=== PATIENT | male | born 1995 | race Caucasian/White ===

== ENCOUNTER 2019-04-13 09:01 | Emergency (ER) | payer OTHER, SELFPAY ==
[2019-04-13 09:07] VITALS: BP 112/65; PULSE 80; RESP 16; TEMP 37.1; O2SAT 100
--- NOTE | 2019-04-13 09:14 | ED.URI ---
HPI - URI/Sore Throat General Chief Complaint: Upper Respiratory Infection Stated Complaint: sore throat/sinus pressure/chest mata Time Seen by Provider: 04/13/19 09:20 Source: patient and RN notes reviewed History of Present Illness HPI Narrative: Patient is a 23-year-old male that presents the urgent care with complaints of sore throat, chest congestion, cough, sinus pressure. Patient states that started 2 days ago. Denies any known fever, nausea, vomiting. Has been using Zicam, nasal spray and Tylenol. No other acute complaints. No acute distress noted. Patient read the plan of care. Related Data Home Medications Medication Instructions Recorded Confirmed Zycam 04/13/19 acetaminophen [Tylenol] 325 mg PO ONCE PRN 04/13/19 04/13/19 Allergies Allergy/AdvReac Type Severity Reaction Status Date / Time No Known Allergies Allergy Verified 04/13/19 09:15 Review of Systems Review of Systems: Narrative: CONSTITUTIONAL: Denies fever, chills, or sweats. EYES: Denies visual changes, redness, or discharge. ENT: Reports of sinus congestion, sinus pressure, mild sore throat, postnasal drainage CARDIOVASCULAR: Denies chest pain, palpitations, or edema. RESPIRATORY: Reports of nonproductive cough without dyspnea GASTROINTESTINAL: Denies abdominal pain, nausea, vomiting, or diarrhea. GENITOURINARY: Denies dysuria or hematuria. SKIN: Denies rash or itching. MUSCULOSKELETAL: Denies back pain, joint pain, or myalgia. NEUROLOGIC: Denies headache, numbness, or weakness. All other systems reviewed are negative, except as documented in HPI. PMFSH Social History Social History Smoking status: Light tobacco smoker Alcohol intake: never Substance use type: marijuana Comments At the time of my signature, I reviewed and agree with the nursing past medical, surgical, social, and family history. There is no relevant family history pertinent to the patient complaint. Exam Narrative: Exam Narrative: GENERAL: This is a well-nourished, well-developed patient, in no apparent distress. HEAD: normocephalic, atraumatic. EYES: PERRL. Sclera clear/white. Vision is grossly intact. EARS: External ears normal, auditory canals clear and without drainage, TMs normal without perforation. Hearing grossly intact. NOSE: External nose normal with no obvious nasal discharge, nares without redness, clear rhinorrhea. THROAT: Mucous membranes moist, posterior pharynx clear. Mild postnasal drainage NECK: Neck supple, non-tender without lymphadenopathy CARDIOVASCULAR: Regular rate and rhythm without murmurs, gallops, or rubs. RESPIRATORY: Clear to auscultation. Breath sounds equal bilaterally. No wheezes, rales, or rhonchi. SKIN: warm, intact with no suspicious lesions or rash, good texture and turgor. NEURO: awake, alert, and oriented to person, place and time. There were no obvious focal neurologic abnormalities. EXTREMITIES: No clubbing, cyanosis, or edema. Course Vital Signs Vital signs: Vital Signs Temperature 98.7 F 04/13/19 09:07 Pulse Rate 80 04/13/19 09:07 Respiratory Rate 16 04/13/19 09:07 Blood Pressure 112/65 04/13/19 09:07 Pulse Oximetry 100 04/13/19 09:07 Temperature 98.7 F 04/13/19 09:07 Pulse Rate 80 04/13/19 09:07 Respiratory Rate 16 04/13/19 09:07 Blood Pressure 112/65 04/13/19 09:07 Pulse Oximetry 100 04/13/19 09:07 Reviewed MDM - URI/Sore Throat MDM Narrative Medical decision making narrative: Reviewed lab results with the patient. He is aware that flu swab was negative for influenza. Advised the patient to continue using [id number] medications as needed for symptoms. Continue to use Flonase, Claritin, Tylenol/ibuprofen. Increase fluids and rest. Use humidifier at night. Follow-up with PCP within 2 to 5 days or for worsening symptoms or failure to improve. Differential Diagnosis Differential diagnosis: Likely upper respiratory infection, otitis media, sinusitis, viral infection,
== END 2019-04-13 09:35 | disposition home or self-care (01) ==
PROVIDERS: Emergency Provider Nurse Practitioner Family
DX: J06.9 Acute upper respiratory infection, unspecified (principal); F17.200 Nicotine dependence, unspecified, uncomplicated
CPT/HCPCS: 87804; 99212; G0463

== ENCOUNTER 2020-04-20 15:12 | Emergency (ER) | payer SELFPAY ==
[2020-04-20 15:42] VITALS: BP 102/88; PULSE 95; RESP 18; TEMP 36.7; O2SAT 100
--- NOTE | 2020-04-20 15:47 | PC.NURSE ---
Pt hyperventilating in triage, crying and states Im freaking out, I freak out with needles, I have bad anxiety, dont do this right now. I feel like I am going to pass out. Pt uncooperative w/ lab draw at this time, requests to wait for room.
== END 2020-04-20 21:31 | disposition left against medical advice (07) ==
DX: Z53.21 Procedure and treatment not carried out due to patient leaving prior to being seen by health care provider (principal)
CPT/HCPCS: 99199

== ENCOUNTER 2020-04-20 19:44 | Emergency (ER) | payer OTHER, SELFPAY ==
--- NOTE | ~2020-04-20 | XR_ITS ---
EXAMINATION: XR chest 1V portable INDICATION: Shortness of breath and midsternal chest pain TECHNIQUE: Portable AP chest at 2255 hours COMPARISON: None available FINDINGS: The lungs are free of acute opacities. There is no pleural effusion or pneumothorax. The ca rdiomediastinal silhouette is normal. The visualized bones and soft tissues are unremarkable. IMPRESSION: 1. No acute cardiopulmonary abnormality. Reviewed, dictated and finalized at location A. S SYSTEMS ENGINEER
[2020-04-20 20:41] VITALS: BP 122/80; PULSE 84; RESP 22; TEMP 36.3; O2SAT 100
--- NOTE | 2020-04-20 20:44 | ECG_ITS ---
Measurements Intervals [place] Rate: 89 P: 67 MS: 127 QRS: 81 QRSD: 83 T: 61 QT: 358 QTc: 436 Interpretive Statements SINUS RHYTHM WITH SINUS ARRHYTHMIA NORMAL ECG Electronically Signed On 04-21-2020 7:13:21 AUTOMOBILE RACER by Marciano Villanueva D.O.
[2020-04-20 21:07] LABS: Basophils Percent Auto 0.3 % (0.2-1.2); Eosinophils Percent Auto 0.4 % (0-4.4); Hematocrit 41.4 % (42.0-52.0); Hemoglobin 14.7 g/dL (14.0-18.0); Immature Granulocyte Absolute 0.04 K/mm3 (0.00-0.031); Immature Granulocyte Percent A 0.4 % (0-0.5); Lymphocytes Absolute Auto 2.26 K/mm3 (0.9-3.2); Lymphocytes Percent Auto 22.2 % (18.3-44.2); Mean Corpuscular HGB Conc 35.5 g/dl (32-36); Mean Corpuscular Hemoglobin 29.3 pg (26-34); Mean Corpuscular Volume 82.5 fl (80-100); Monocytes Absolute Auto 0.6 K/mm3 (0.1-0.6); Monocytes Percent Auto 5.8 % (2.6-8.5); Neutrophils Absolute Auto 7.2 K/mm3 (1.3-6.7); Neutrophils Percent Auto 70.9 % (45.5-73.1); Platelet Count Result 229 k/mm3 (150-375); Red Blood Count 5.02 M/mm3 (4.6-6.20); Red Cell Distribution Width 12.4 % (11.5-14.5); White Blood Count 10.2 K/mm3 (4.5-10.0)
[2020-04-20 21:18] LABS: Anion Gap 10 mmol/L (8-16); Blood Urea Nitrogen 14 mg/dL (9-20); Calcium 10.1 mg/dL (8.4-10.2); Carbon Dioxide 23 mmol/L (22-30); Chloride 103 mmol/L (98-107); Estimated Glomerular Filt Rate > 60; Glucose 99 mg/dL (75-110); Potassium 3.6 mmol/L (3.4-5.0); Sodium 136 mmol/L (137-145)
[2020-04-20 22:17] VITALS: BP 133/88; PULSE 89; PULSE 98; RESP 12; O2SAT 100
--- NOTE | 2020-04-20 22:29 | ED.SOB ---
HPI - SOB/Dyspnea General Chief Complaint: Shortness of Breath/Dyspnea Stated Complaint: can't take a deep breath Time Seen by Provider: 04/20/20 22:16 Source: patient Mode of arrival: ambulatory Limitations: no limitations History of Present Illness HPI Narrative: Patient is a 24-year-old male complaining of shortness of breath that started earlier today. Patient states he has a history of anxiety. Patient denies any cough, congestion, chest pain, abdominal pain, nausea, vomiting, fever or chills. Related Data Home Medications Medication Instructions Recorded Confirmed Zycam 04/13/19 acetaminophen [Tylenol] 325 mg PO ONCE PRN 04/13/19 04/13/19 Allergies Allergy/AdvReac Type Severity Reaction Status Date / Time No Known Allergies Allergy Verified 04/13/19 09:15 Review of Systems Review of Systems: All systems reviewed & are unremarkable except as noted in HPI and below Constitutional: Constitutional: Denies body ache(s), Denies chills, Denies excessive sweating, Denies fatigue, Denies fever(s), Denies headache(s), Denies lethargy, Denies malaise, Denies weakness and Denies weight loss Eyes: Eyes: Denies blurry vision, Denies change in vision and Denies loss of vision ENT: Denies dizziness, Denies ear discharge, Denies headache(s), Denies lip swelling, Denies epistaxis, Denies nasal congestion, Denies neck pain, Denies throat swelling and Denies tongue swelling Cardiovascular: Cardiovascular: Denies chest pain, Denies chest pain at rest, Denies chest pain with activity, Denies diaphoresis, Denies rapid heart rate, Denies edema, Denies irregular heart rhythm, Denies lightheadedness, Denies palpitations, Denies dyspnea and Denies dyspnea on exertion Respiratory: Respiratory: Denies chest congestion, Denies cough and Denies hemoptysis Gastrointestinal: Gastrointestinal: Denies abdominal pain, Denies melena, Denies hematochezia, Denies diarrhea, Denies nausea, Denies vomiting and Denies hematemesis Musculoskeletal: Musculoskeletal: Denies abnormal gait, Denies deformity, Denies joint swelling, Denies limited range of motion, Denies neck pain and Denies numbness Neurologic: Denies Abnormal speech present, Denies abnormal gait, Denies confusion, Denies dizziness, Denies headache(s), Denies focal weakness, Denies loss of vision, Denies numbness, Denies Other visual disturbances, Denies Sensory deficit (Neuro) and Denies weakness Psychiatric: Psychiatric: Denies confusion, Denies depression, Denies auditory hallucinations, Denies homicidal ideation and Denies suicidal ideation Endocrine: Endocrine: Denies cold intolerance, Denies excessive sweating, Denies fatigue, Denies heat intolerance and Denies palpitations Hematologic/Lymphatic: Hematologic/Lymphatic: Denies easy bleeding and Denies easy bruising Allergic/Immunologic: Allergic/Immunologic: Denies lip swelling, Denies throat swelling and Denies tongue swelling [facility] Social History Social History Smoking status: Light tobacco smoker Alcohol intake: never Substance use type: marijuana Gender identity (if verbalized by the patient): Male Exam Const: General: cooperative, healthy appearing, comfortable, no acute distress, well developed, alert and awake; No confusion Orientation/consciousness: oriented to person, oriented to place, oriented to time, patient oriented x3 and No confusion Limitations: no limitations HENMT: Head: normal to inspection, normocephalic and atraumatic Ears: hearing grossly normal bilaterally, TM normal on the right and TM normal on the left General nose exam: Normal external nose present, Normal nares present and No nasal discharge present Face and sinus: normal facial exam Mouth: Yes Normal oral and palatal mucosa present, Yes lip normal, Yes tongue normal and Yes oropharynx normal Throat: posterior oropharynx normal, tonsils normal and uvula midline Eyes: General: appearance
[2020-04-20 22:45] VITALS: BP 128/69; PULSE 72; RESP 14; O2SAT 99
--- NOTE | 2020-04-20 22:46 | PC.NURSE ---
Added on d-dimer
[2020-04-20 23:25] LABS: D Dimer < 0.22 ug/mL (<0.48)
[2020-04-20 23:45] VITALS: BP 122/74; PULSE 73; RESP 12; O2SAT 97
[2020-04-21] MEDS: LORazepam (*CRX) 0.5 MG TABLET PO (00:12)
== END 2020-04-21 00:12 | disposition home or self-care (01) ==
PROVIDERS: Emergency Medicine; Emergency Provider Emergency Medicine
DX: R06.00 Dyspnea, unspecified (principal); F41.9 Anxiety disorder, unspecified; F17.200 Nicotine dependence, unspecified, uncomplicated
CPT/HCPCS: 36415; 71045; 80048; 85025; 85380; 93005; 99284; A9270

== ENCOUNTER 2020-04-24 09:41 | Emergency (ER) | payer OTHER, SELFPAY ==
[2020-04-24 09:57] VITALS: BP 150/87; PULSE 73; RESP 20; TEMP 37.3; O2SAT 99
--- NOTE | 2020-04-24 10:52 | ED.GENADULT ---
HPI - General Adult General Chief complaint: Nausea/Vomiting/Diarrhea Stated complaint: nausea Time Seen by Provider: 04/24/20 10:40 Source: patient Mode of arrival: ambulatory Limitations: no limitations History of Present Illness HPI narrative: Patient presents today complaining of nausea that occurs every morning for the past several mornings. Usually it dissipates towards noon and is not currently present. He has recently started on Zoloft for his anxiety 3 days ago by his PCP and states his moods have been labile since that time. Reports he has been crying this morning for no reason. He was seen in the ER 4 days ago and worked up for shortness of breath, and was told it was due to his anxiety and panic attack. Denies abdominal pain, vomiting, diarrhea. Does report some intermittent history of heartburn, but states he occasionally takes Tums for this and it resolves. No HI or SI. MD complaint: Nausea Related Data Home Medications Medication Instructions Recorded Confirmed hydroxyzine HCl 04/24/20 Allergies Allergy/AdvReac Type Severity Reaction Status Date / Time No Known Allergies Allergy Verified 04/22/20 11:03 Review of Systems Review of Systems: Narrative: CONSTITUTIONAL: Denies body aches, fever, chills, or sweats. EYES: Denies visual changes, redness, or discharge. ENT: Denies rhinorrhea, congestion, sore throat, or otalgia. CARDIOVASCULAR: Denies chest pain, palpitations, or edema. RESPIRATORY: Denies cough or dyspnea. GASTROINTESTINAL: Denies abdominal pain, vomiting, or diarrhea. + Nausea GENITOURINARY: Denies dysuria or hematuria. SKIN: Denies rash, itching, or wounds. MUSCULOSKELETAL: Denies back pain, joint pain, or myalgia. NEUROLOGIC: Denies headache, numbness, tingling, or weakness. PSYCH: Denies depression or anxiety. ON LICENSE OF [facility] Past Medical History Medical History (Updated 04/24/20 @ 16:25 by Laura Ronquillo, PHOTOENGRAVING PRINTER, ) Anxiety Social History Social History (Updated 04/22/20 @ 11:03 by Omaira Mclaughlin MA) Smoking status: Light tobacco smoker Alcohol intake: never Substance use type: marijuana Gender identity (if verbalized by the patient): Male Comments At time of signature, I have reviewed and agree with nursing past medical, surgical, social and family history unless otherwise noted. Please see nursing chart for further information. There is no relevant family history pertinent to the presenting complaint Exam Narrative: Exam Narrative: GENERAL: Well-appearing, well-nourished. HEAD: Normocephalic, atraumatic. EYES: EOMI. No redness or drainage. Conjunctivae normal. ENT: Mucous membranes pink and moist. NECK: Normal AROM. CHEST: No respiratory distress. Clear to auscultation. HEART: Regular rate and rhythm. No murmur appreciated. Normal peripheral pulses. ABDOMEN: Soft, nontender, nondistended, normal active bowel sounds. EXTREMITIES: Normal range of motion. No edema. SKIN: Warm, dry, no rash. Capillary refill normal. Normal skin turgor. NEURO: No focal deficits. Alert and oriented x3. Gait steady. PSYCH: Anxious and tearful Course Vital Signs Vital signs: Vital Signs Temperature 99.2 F 04/24/20 09:57 Pulse Rate 73 04/24/20 09:57 Respiratory Rate 20 04/24/20 09:57 Blood Pressure 150/87 H 04/24/20 09:57 Pulse Oximetry 99 04/24/20 09:57 Temperature 99.2 F 04/24/20 09:57 Pulse Rate 73 04/24/20 09:57 Respiratory Rate 20 04/24/20 09:57 Blood Pressure 150/87 H 04/24/20 09:57 Pulse Oximetry 99 04/24/20 09:57 Reviewed. Pt has been instructed to follow up with his PCP regarding his elevated blood pressure today. Medical Decision Making Differential Diagnosis Differential Diagnosis: Anxiety, depression, panic attack, GERD, gastritis, esophagitis Vital Signs Vital Signs: Vital Signs Temperature 99.2 F 04/24/20 09:57 Pulse Rate 73 04/24/20 09:57 Respiratory Rate 20 04/24/20 09:57 Blood Pressure 150/87 H 04/24/20
== END 2020-04-24 11:02 | disposition home or self-care (01) ==
PROVIDERS: Emergency Provider Nurse Practitioner; PCP Family Medicine
DX: R11.0 Nausea (principal); F41.9 Anxiety disorder, unspecified; F17.200 Nicotine dependence, unspecified, uncomplicated
CPT/HCPCS: 99213; G0463

== ENCOUNTER 2020-04-25 07:49 | Emergency (ER) | payer OTHER, SELFPAY ==
--- NOTE | ~2020-04-25 | CT_ITS ---
EXAMINATION: CTA brain carotid EXAM DATE: 04/25/2020 09:03 INDICATION: Dizziness. TECHNIQUE: Noncontrast head CT. Spiral CTA of the carotid arteries was performed with intravenous i njection 100 cc of Omnipaque 350. Axial, coronal, sagittal reformatted images reviewed. Additional r eformatted images created on dedicated 3-D workstation. NASCET comparable standard used to assess th e degree of arterial stenosis. Spiral CT angiogram cerebral arteries performed with the same intrave nous injection of contrast. Source images of the brain CTA transferred to dedicated workstation for 3 -D rotational image creation. Coronal, sagittal maximum intensity pixel images also reviewed. The d ose-length product (DLP) for this examination was 1791.10 mGy-cm. The exposure was tailored accordi ng to patient size, and iterative reconstruction (ASIR) was used as additional dose reduction techniq ue. Comparison is made to prior examination from 10/08/2013 (head CT). FINDINGS: There is bilateral carotid bulb 0% stenosis. 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 There is no carotid or ve rtebral basilar arterial dissection or fibromuscular dysplasia. There are no cerebral artery aneurysm s. There is symmetric cerebral artery arborization. The sagittal, transverse and sigmoid sinuses enha nce normally, no venous sinus thrombosis. Internal cerebral veins also enhance normally. There is no acute intraparenchymal hemorrhage. No evidence of intraparenchymal brain mass lesion. N o evidence of acute infarction. There is no mass effect or midline shift. There is no obstructive hyd rocephalus suspected. There are no extra-axial collections. There are no calvarial acute fractures. Residual thymic tissue. No cervical or superior mediastinal lymphadenopathy. No apical airspace dis ease or appreciable cervical spondylosis. IMPRESSION: No acute carotid or intracranial findings. Reviewed, dictated and finalized at location B. O INTERFERENCE EXPERT
[2020-04-25 07:49] VITALS: BP 126/84; PULSE 98; RESP 24; TEMP 36.7; O2SAT 100
--- NOTE | 2020-04-25 07:55 | ECG_ITS ---
Measurements Intervals [place] Rate: 71 P: 48 OR: 114 QRS: 83 QRSD: 86 T: 64 QT: 358 QTc: 391 Interpretive Statements SINUS RHYTHM WITH SHORT OR INTERVAL ST ELEVATION IN ANTEROLAT/INF LEADS- PROBABLY EARLY REPOLARIZATION BASELINE ARTIFACT- I, II, AVR BORDERLINE ECG Electronically Signed On 04-25-2020 8:10:57 GUEST SERVICE MANAGER by Marciano Villanueva D.O.
[2020-04-25 08:07] LABS: Basophils Percent Auto 0.3 % (0.2-1.2); Eosinophils Percent Auto 0.5 % (0-4.4); Hematocrit 46.1 % (42.0-52.0); Hemoglobin 16.3 g/dL (14.0-18.0); Immature Granulocyte Absolute 0.02 K/mm3 (0.00-0.031); Immature Granulocyte Percent A 0.3 % (0-0.5); Lymphocytes Absolute Auto 2.06 K/mm3 (0.9-3.2); Lymphocytes Percent Auto 26.7 % (18.3-44.2); Mean Corpuscular HGB Conc 35.4 g/dl (32-36); Mean Corpuscular Hemoglobin 29.3 pg (26-34); Mean Corpuscular Volume 82.9 fl (80-100); Monocytes Absolute Auto 0.5 K/mm3 (0.1-0.6); Monocytes Percent Auto 5.8 % (2.6-8.5); Neutrophils Absolute Auto 5.1 K/mm3 (1.3-6.7); Neutrophils Percent Auto 66.4 % (45.5-73.1); Platelet Count Result 270 k/mm3 (150-375); Red Blood Count 5.56 M/mm3 (4.6-6.20); Red Cell Distribution Width 12.5 % (11.5-14.5); White Blood Count 7.7 K/mm3 (4.5-10.0)
[2020-04-25 08:10] LABS: Add Urine Microscopic? YES; Appearance Urine Clear (Clear); Bilirubin Urine Negative (Negative); Blood Urine Negative (Negative); Color Urine Yellow (Yellow); Glucose Urine UA Negative (Negative); Ketones Urine 1+ mg/dL (Negative); Leukocyte Esterase Ur Negative LEU/UL (Negative); Mucus Urine Heavy /lpf; Nitrate Urine Negative (Negative); Protein Urine 1+ mg/dL (Negative); Specific Grav Ur 1.032 (1.001-1.035); Urobilinogen Urine Negative mg/dL (<2.0); WBC Urine 0-3 /hpf
[2020-04-25 08:16] LABS: Alanine Aminotransferase 18 U/L (4-50); Albumin Level 5.1 g/dL (3.5-5.1); Alkaline Phosphatase 77 U/L (38-126); Anion Gap 13 mmol/L (8-16); Aspartate Amino Transferase 22 U/L (17-59); Blood Urea Nitrogen 14 mg/dL (9-20); Calcium 10.6 mg/dL (8.4-10.2); Carbon Dioxide 24 mmol/L (22-30); Chloride 104 mmol/L (98-107); Estimated CRCL calculation 81 ml/min; Estimated Glomerular Filt Rate > 60; Glucose 122 mg/dL (75-110); Lipase 31 U/L (23-300); Potassium 4.3 mmol/L (3.4-5.0); Sodium 141 mmol/L (137-145)
--- NOTE | 2020-04-25 08:18 | ED.GENADULT ---
HPI - General Adult General Chief complaint: Dizziness Stated complaint: NAUSEA/DIZZINESS Time Seen by Provider: 04/25/20 07:53 Source: patient History of Present Illness HPI narrative: Patient is a 24 y/o male complaining of severe dizziness starting 3 days ago. He describes his dizziness as a room spinning sensation and light-headedness. He states that doing things makes his dizziness worse. He states that He passed out in the yard this morning. However, he was able to get up on his own. He also has been having nausea and vomiting. Related Data Home Medications Medication Instructions Recorded Confirmed hydroxyzine HCl 04/24/20 Allergies Allergy/AdvReac Type Severity Reaction Status Date / Time No Known Allergies Allergy Verified 04/25/20 08:46 Review of Systems Constitutional: Constitutional: Denies chills, Denies fever(s), Denies headache(s) and Denies weakness Eyes: Eyes: Denies blurry vision ENT: Denies headache(s) and Denies neck pain Cardiovascular: Cardiovascular: Denies chest pain and Denies dyspnea Respiratory: Respiratory: Denies cough and Denies dyspnea Gastrointestinal: Gastrointestinal: Denies abdominal pain, Denies diarrhea, Denies nausea and Denies vomiting Genitourinary: Genitourinary: Denies hematuria and Denies dysuria Musculoskeletal: Musculoskeletal: Denies back pain and Denies neck pain Neurologic: Reports dizziness, Reports syncope, Denies headache(s) and Denies weakness PMF Past Medical History Medical History Anxiety Social History Social History Smoking status: Light tobacco smoker Alcohol intake: never Substance use type: marijuana Gender identity (if verbalized by the patient): Male Exam Const: General: no acute distress and well developed Orientation/consciousness: oriented to person, oriented to place, oriented to time and patient oriented x3 HENMT: Head: normocephalic Ears: external ears normal General nose exam: Normal external nose present Eyes: General: appearance normal, both eyes and all related structures Conjunctivae: conjunctivae normal Neck: Neck: normal visual inspection and full ROM Chest: Chest palpation & inspection: normal inspection of the chest and no tenderness Resp: Effort & Inspection: normal respiratory effort Auscultation: clear to auscultation bilaterally Cardio: Rate: regular rate Rhythm: regular rhythm GI: GI Palp: No abdominal tenderness and Yes Soft to palpation Skin: General skin exam: normal color and turgor normal Neuro: General: oriented to person, oriented to place, oriented to time and patient oriented x3 Cranial nerves: Yes CN's II-XII intact bilaterally Cognition (Neuro): normal cognition Speech: normal speech Motor exam (neuro): 5/5 motor strength present throughout Sensory Exam: normal sensation Coordination: [id number] test normal and [id number] test normal Extrem: General: normal to inspection, full ROM and no pedal edema Psych: Appearance: grossly normal Mental Status: mental status grossly normal Affect: normal affect Course Vital Signs Vital signs: Vital Signs Temperature 36.7 C 04/25/20 07:49 Pulse Rate 98 04/25/20 07:49 Respiratory Rate 24 H 04/25/20 07:49 Blood Pressure 126/84 04/25/20 07:49 Pulse Oximetry 100 04/25/20 07:49 Temperature 36.7 C 04/25/20 07:49 Pulse Rate 108 H 04/25/20 12:07 Respiratory Rate 17 04/25/20 12:07 Blood Pressure 142/89 H 04/25/20 12:07 Pulse Oximetry 99 04/25/20 12:07 Medical Decision Making Vital Signs Vital Signs: Vital Signs Temperature 36.7 C 04/25/20 07:49 Pulse Rate 98 04/25/20 07:49 Respiratory Rate 24 H 04/25/20 07:49 Blood Pressure 126/84 04/25/20 07:49 Pulse Oximetry 100 04/25/20 07:49 Temperature 36.7 C 04/25/20 07:49 Pulse Rate 108 H 04/25/20 12:07 Respiratory Rate
[2020-04-25] MEDS: SODIUM CHLORIDE 0.9% IV 1,000 ML 999 ML IV CONT (08:22)
[2020-04-25 08:31] VITALS: BP 129/79; PULSE 70; RESP 21; O2SAT 94
--- NOTE | 2020-04-25 08:46 | PC.NURSE ---
Pt to CT scan via stretcher.
[2020-04-25 09:26] LABS: Amphetamine Screen Urine Negative (Negative); Barbiturate Screen Urine Negative (Negative); Benzodiazepines Screen Urine Negative (Negative); Cannabinoid Screen Urine Positive (Negative); Cocaine Screen Urine Negative (Negative); Methadone Screen Urine Negative (Negative); Opiate Screen Urine Negative (Negative); Phencyclidine Screen Urine Negative (Negative)
[2020-04-25] MEDS: MECLIZINE HCL 25 MG TABLET PO (09:46)
[2020-04-25 10:12] VITALS: BP 140/91; PULSE 91; RESP 15; O2SAT 96
[2020-04-25 10:45] VITALS: BP 142/89; PULSE 108; RESP 17; O2SAT 99
--- NOTE | 2020-04-25 10:46 | PC.NURSE ---
This RN went to discharge pt who states he is feeling weak and shaky, unsure if when he gets home he would end up right back here . EDP Dr Cannon made aware, gave VORB for Ativan 1MG IVP due to pt anxious. EDP at bedside to discuss POC w/ pt.
[2020-04-25] MEDS: LORazepam INJ (*CRX) 2 MG/ML VIAL 1 MG IV PUSH (10:54)
[2020-04-25 11:11] VITALS: BP 127/81; PULSE 94; RESP 20; O2SAT 99
[2020-04-25 12:07] VITALS: BP 142/89; PULSE 108; RESP 17; O2SAT 99
== END 2020-04-25 12:08 | disposition home or self-care (01) ==
PROVIDERS: Emergency Provider Emergency Medicine; PCP Family Medicine
DX: R42 Dizziness and giddiness (principal); F41.9 Anxiety disorder, unspecified; F17.200 Nicotine dependence, unspecified, uncomplicated; R94.31 Abnormal electrocardiogram [ECG] [EKG]
CPT/HCPCS: 36415; 70496; 70498; 80053; 80307; 81001; 83690; 85025; 93005; 96361; 96374; 99284; A9270; J2060; J7030; Q9967

== ENCOUNTER 2020-05-19 02:05 | Emergency (ER) | payer OTHER, SELFPAY ==
--- NOTE | ~2020-05-19 | CT_ITS ---
EXAMINATION: CT abdomen pelvis w con DATE: 05/19/2020 03:29 INDICATION: Right-sided abdominal pain TECHNIQUE: Computed tomography (CT) of the abdomen and pelvis was performed with 100 mL Omnipaque-350 intravenous contrast. Automated exposure control and iterative reconstruction technique were employe d. The dose-length product was 412.52 mGy-cm. COMPARISON: None FINDINGS: Lung bases are clear. Heart size is normal. No pericardial or pleural effusion. Liver, gallbladder, s pleen, pancreas, bilateral adrenal glands and kidneys are normal. No abnormal bowel wall thickening o r obstruction. Normal appendix. No pathologically enlarged abdominal or pelvic lymphadenopathy. Bladd er is normal. No free intraperitoneal gas or fluid. Chronic appearing mild anterior wedging at T12-L2 along with several Schmorl's nodes at the lower thoracic and upper lumbar spine. IMPRESSION: 1. No acute intra-abdominal/pelvic process. Reviewed, dictated and finalized at location A.
[2020-05-19 02:08] VITALS: BP 120/84; PULSE 105; RESP 22; TEMP 35.3; O2SAT 100
--- NOTE | 2020-05-19 02:19 | ED.ABDPAIN ---
HPI - Abdominal Pain General Chief Complaint: Abdominal Pain Stated Complaint: abd pain Time Seen by Provider: 05/19/20 02:13 History of Present Illness HPI narrative: Right sided abdominal pain since yesterday morning. No radiation. Feels like cramping. Associated with nausea and vomiting x1. This is a new problem. No fever, diarrhea, constipation. Related Data Home Medications Medication Instructions Recorded Confirmed cimetidine 05/19/20 Allergies Allergy/AdvReac Type Severity Reaction Status Date / Time No Known Allergies Allergy Verified 05/19/20 02:44 Review of Systems Review of Systems: All systems reviewed & are unremarkable except as noted in HPI and below Constitutional: Constitutional: Denies chills and Denies fever(s) ENT: Reports system reviewed and no additional complaints, except as documented Cardiovascular: Cardiovascular: Denies chest pain Respiratory: Respiratory: Denies dyspnea Gastrointestinal: Gastrointestinal: Reports abdominal pain, Denies constipation, Denies diarrhea, Reports nausea and Reports vomiting Genitourinary: Genitourinary: Reports no additional male genitourinary complaints, Denies hematuria, Denies dysuria and Denies urinary frequency Musculoskeletal: Musculoskeletal: Denies back pain Neurologic: Reports system reviewed and no additional complaints, except as documented [facility], [facility] Past Medical History Medical History Anxiety Social History Social History Smoking status: Light tobacco smoker Alcohol intake: never Substance use type: marijuana Gender identity (if verbalized by the patient): Male Sexual Orientation (if Verbalized by the Patient): Straight or Heterosexual Exam Const: General: healthy appearing, no acute distress and alert Orientation/consciousness: patient oriented x3 HENMT: Head: normal to inspection Neck: Neck: normal visual inspection Resp: Effort & Inspection: tachypneic Auscultation: clear to auscultation bilaterally, no rales, no rhonchi and no wheezes Cardio: Jugular venous distension: no JVD Rate: tachycardic Rhythm: regular rhythm Heart sounds: no murmurs GI: Inspection: non-distended GI Palp: Yes Soft to palpation, Yes Tenderness to palpation present (GI) (Right side, worst in RUQ), Yes Guarding due to palpation present (GI) and No Rebound tenderness present Skin: General skin exam: normal color Neuro: General: patient oriented x3 and moves all extremities Speech: normal speech Extrem: General: no edema Psych: Appearance: well kempt Affect: Anxious affect present Course Vital Signs Vital signs: Vital Signs Temperature 35.3 C L 05/19/20 02:08 Pulse Rate 105 H 05/19/20 02:08 Respiratory Rate 22 H 05/19/20 02:08 Blood Pressure 120/84 05/19/20 02:08 Pulse Oximetry 100 05/19/20 02:08 Temperature 35.3 C L 05/19/20 02:08 Pulse Rate 82 05/19/20 05:05 Respiratory Rate 16 05/19/20 05:05 Blood Pressure 118/64 05/19/20 05:05 Pulse Oximetry 98 05/19/20 05:05 MDM - Abdominal Pain Differential Diagnosis Differential diagnosis: Likely acute appendicitis, calculus of kidney, gastroenteritis, pancreatitis and other (cholecystitis) Lab Data Attestation: I reviewed the patient's lab results. Result diagrams: 05/19/20 02:21 05/19/20 02:21 Labs: Lab Results 05/19/20 05/19/20 05/19/20 Range/Units 02:21 02:21 02:53 WBC 13.6 H (4.5-10.0) K/mm3 RBC 5.32 (4.6-6.20) M/mm3 Hgb 15.3 (14.0-18.0) g/dL Hct 43.7 (42.0-52.0) % MCV 82.1 (80-100) fl MCH 28.8 (26-34) pg MCHC 35.0 (32-36) g/dl RDW 12.5 (11.5-14.5) % Plt Count 250 (150-375) k/mm3 MPV 8.9 (7.4-10.4) fl Immature Gran % (Auto) 0.4 (0-0.5) % Neut % (Auto) 71.0 (45.5-73.1) % Lymph % (Auto) 21.2 (18.3-44.2) % Esmeralda % (Auto) 5.1
[2020-05-19 02:26] LABS: Basophils Absolute Auto 0.1 K/mm3 (0.0-0.1); Basophils Percent Auto 0.4 % (0.2-1.2); Eosinophils Absolute Auto 0.3 K/mm3 (0-0.3); Eosinophils Percent Auto 1.9 % (0-4.4); Hematocrit 43.7 % (42.0-52.0); Hemoglobin 15.3 g/dL (14.0-18.0); Immature Granulocyte Absolute 0.05 K/mm3 (0.00-0.031); Immature Granulocyte Percent A 0.4 % (0-0.5); Lymphocytes Absolute Auto 2.89 K/mm3 (0.9-3.2); Lymphocytes Percent Auto 21.2 % (18.3-44.2); Mean Corpuscular Hemoglobin 28.8 pg (26-34); Mean Corpuscular Volume 82.1 fl (80-100); Mean Platelet Volume 8.9 fl (7.4-10.4); Monocytes Absolute Auto 0.7 K/mm3 (0.1-0.6); Monocytes Percent Auto 5.1 % (2.6-8.5); Neutrophils Absolute Auto 9.7 K/mm3 (1.3-6.7); Platelet Count Result 250 k/mm3 (150-375); Red Blood Count 5.32 M/mm3 (4.6-6.20); Red Cell Distribution Width 12.5 % (11.5-14.5); White Blood Count 13.6 K/mm3 (4.5-10.0)
[2020-05-19 02:37] LABS: Potassium 3.5 mmol/L (3.4-5.0)
[2020-05-19] MEDS: ONDANSETRON INJ 4 MG/2 ML VIAL IV PUSH (02:49)
[2020-05-19] MEDS: SODIUM CHLORIDE 0.9% IV 1,000 ML 999 ML IV CONT (02:49)
[2020-05-19 03:03] LABS: Alanine Aminotransferase 47 U/L (4-50); Albumin Level 4.9 g/dL (3.5-5.1); Alkaline Phosphatase 77 U/L (38-126); Anion Gap 10 mmol/L (8-16); Aspartate Amino Transferase 38 U/L (17-59); Bilirubin,Total 0.4 mg/dL (0.2-1.3); Blood Urea Nitrogen 19 mg/dL (9-20); Calcium 10.7 mg/dL (8.4-10.2); Carbon Dioxide 27 mmol/L (22-30); Chloride 103 mmol/L (98-107); Estimated CRCL calculation 96 ml/min; Estimated Glomerular Filt Rate > 60; Glucose 118 mg/dL (75-110); Lipase 34 U/L (23-300); Sodium 140 mmol/L (137-145)
[2020-05-19 03:06] LABS: Add Urine Microscopic? YES; Appearance Urine Clear (Clear); Bilirubin Urine Negative (Negative); Blood Urine Negative (Negative); Color Urine Yellow (Yellow); Glucose Urine UA Negative (Negative); Ketones Urine Negative (Negative); Leukocyte Esterase Ur Negative LEU/UL (Negative); Mucus Urine Rare /lpf; Nitrate Urine Negative (Negative); Protein Urine 1+ mg/dL (Negative); RBC Urine 0-2 /hpf (0-2); Specific Grav Ur 1.027 (1.001-1.035); Urobilinogen Urine Negative mg/dL (<2.0); WBC Urine 0-3 /hpf
[2020-05-19] MEDS: DICYCLOMINE HCL INJ 20 MG/2 ML VIAL IM (04:19)
[2020-05-19 05:05] VITALS: BP 118/64; PULSE 82; RESP 16; O2SAT 98
== END 2020-05-19 05:05 | disposition home or self-care (01) ==
PROVIDERS: Emergency Provider Emergency Medicine; PCP Family Medicine
DX: R10.9 Unspecified abdominal pain (principal); F17.200 Nicotine dependence, unspecified, uncomplicated
CPT/HCPCS: 36415; 74177; 80053; 81001; 83690; 85025; 96361; 96372; 96374; 99284; J0500; J2405; J7030; Q9967

== ENCOUNTER 2021-03-05 16:51 | Emergency (ER) | payer OTHER, SELFPAY ==
[2021-03-05 17:08] VITALS: BP 118/69; PULSE 112; RESP 18; TEMP 38; O2SAT 98
[2021-03-05 20:11] VITALS: BP 124/100; PULSE 98; RESP 18; TEMP 39.2; O2SAT 97
[2021-03-05] MEDS: ACETAMINOPHEN 500 MG TABLET 1000 MG PO (20:11)
[2021-03-05] MEDS: ONDANSETRON HCL ODT 4 MG TABLET PO (20:11)
--- NOTE | 2021-03-05 21:28 | ED.URI ---
HPI - URI/Sore Throat General Chief Complaint: Upper Respiratory Infection Stated Complaint: FEVER Time Seen by Provider: 03/05/21 19:56 Source: patient Mode of arrival: ambulatory Limitations: no limitations History of Present Illness HPI Narrative: This is a 25-year-old male that presents to the emergency department for cold symptoms present since yesterday. Reports fever, myalgias, congestion, headache, and sore throat. Reports a possible exposure to COVID. He is not vaccinated. Denies chest pain or shortness of breath. Related Data Home Medications Medication Instructions Recorded Confirmed cimetidine 05/19/20 Allergies Allergy/AdvReac Type Severity Reaction Status Date / Time No Known Allergies Allergy Verified 05/19/20 02:44 Review of Systems Review of Systems: CONSTITUTIONAL: Denies fever ENT: Reports congestion, sore throat CARDIOVASCULAR: Denies chest pain RESPIRATORY: Denies dyspnea. All systems reviewed & are unremarkable except as noted in HPI and below PMFSH Past Medical History Medical History Anxiety Social History Social History Smoking status: Light tobacco smoker Alcohol intake: never Substance use type: marijuana Gender identity (if verbalized by the patient): Male Sexual Orientation (if Verbalized by the Patient): Straight or Heterosexual Exam Narrative: GENERAL: Well-appearing, well-nourished, and in no acute distress. HEAD: Normocephalic, atraumatic. EYES: EOMI. ENT: Nares clear, no rhinorrhea or epistaxis. Mucous membranes moist. Oropharynx without tonsillar hypertrophy exudate or other lesions. Bilateral TMs pearly saez non-bulging NECK: Supple. No adenopathy or masses. CHEST: Clear to auscultation. No respiratory distress. No wheezes rales or rhonchi HEART: Regular rate and rhythm. No murmur heard. Normal peripheral pulses. EXTREMITIES: Normal range of motion. No edema. SKIN: Warm, dry, no rash. NEURO: No focal deficits. Alert and oriented x3. PSYCH: Normal mood and affect Course Vital Signs Vital signs: Vital Signs Temperature 100.4 F H 03/05/21 17:08 Pulse Rate 112 H 03/05/21 17:08 Respiratory Rate 18 03/05/21 17:08 Blood Pressure 118/69 03/05/21 17:08 Pulse Oximetry 98 03/05/21 17:08 Temperature 102.6 F H 03/05/21 20:11 Pulse Rate 98 03/05/21 20:11 Respiratory Rate 18 03/05/21 20:11 Blood Pressure 124/100 H 03/05/21 20:11 Pulse Oximetry 97 03/05/21 20:11 MDM - URI/Sore Throat MDM Narrative Medical decision making narrative: Patient presents to the emergency department for cold symptoms since yesterday. Febrile in the ED, tachycardic upon arrival of this improved with antipyretic. Influenza screen is negative. SARS-CoV-2 was sent. Patient reports a recent exposure to COVID. He is unvaccinated. He was instructed on continued care of viral infection. He is to follow-up with primary care doctor. He was given warnings to return to the ER Lab Data Attestation: I reviewed the patient's lab results. Labs: Lab Results 03/05/21 Range/Units 20:13 SARS-CoV-2 RNA (RT-PCR) Pending Influenza A Screen Negative Reference Range: Negative Influenza B Screen Negative Reference Range: Negative Critical Care Time Critical Care Time Critical Care Time: No Discharge Plan Discharge Clinical Impression: Person under investigation for COVID-19, Acute viral syndrome Patient Disposition: Home, Self-Care Condition: Stable Instructions: Viral Syndrome (ED), COVID-19 (Coronavirus Disease 2019) (ED), How to Recover from COVID-19 at Home (ED) Additional Instructions: Return to the emergency department for worsening symptoms, or any other concerns Remain well-hydrated, get p
[2021-03-05] MEDS: IBUPROFEN 600 MG TABLET PO (21:31)
[2021-03-05 21:53] VITALS: TEMP 36.6
[2021-03-06 13:26] LABS: SARS-CoV-2 RNA PCR Positive
== END 2021-03-05 21:54 | disposition home or self-care (01) ==
PROVIDERS: Physician Assistant; Emergency Provider Emergency Medicine; PCP Family Medicine
DX: U07.1 COVID-19 (principal); F17.200 Nicotine dependence, unspecified, uncomplicated
CPT/HCPCS: 87804; 99283; A9270; C9803; U0003; U0005

== ENCOUNTER 2023-11-05 08:57 | Emergency (ER) | payer OTHER, SELFPAY ==
--- NOTE | ~2023-11-05 | XR_ITS ---
EXAMINATION: XR shoulder RT min 2V DATE: 11/05/2023 09:22 INDICATION: Right shoulder pain post injury TECHNIQUE: AP internally and externally rotated, AP oblique externally rotated and transscapular Y vi ews of the right shoulder were obtained. COMPARISON: None FINDINGS: Normal alignment. No fracture. Glenohumeral joint is normal. Acromioclavicular joint is normal. Soft tissues are unremarkable. IMPRESSION: Negative right shoulder radiographs. Reviewed, dictated and finalized at location B.
[2023-11-05 09:11] VITALS: BP 127/77; PULSE 64; RESP 16; TEMP 36.7; O2SAT 100
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
== END 2023-11-05 10:06 | disposition home or self-care (01) ==
PROVIDERS: Emergency Provider Nurse Practitioner Family
DX: S43.401A Unspecified sprain of right shoulder joint, initial encounter (principal); V18.4XXA Pedal cycle driver injured in noncollision transport accident in traffic accident, initial encounter
CPT/HCPCS: 73030; 99213; G0463

== ENCOUNTER 2023-11-05 15:21 | Emergency (ER) | payer OTHER, SELFPAY ==
--- NOTE | ~2023-11-05 | CT_ITS ---
EXAMINATION: CT brain wo con DATE: 11/05/2023 17:03 INDICATION: Head injury. TECHNIQUE: Computed tomography (CT) of the head was performed without intravenous contrast. The mA wa s adjusted according to patient size. Iterative reconstruction technique was employed. The dose-lengt h product was 605.33 mGy-cm. COMPARISON: Head CT 04/25/2020 FINDINGS: There is no intracranial hemorrhage, acute infarction, or abnormal intracranial mass lesion . The ventricles are normal in size. There is mild mucosal thickening in the paranasal sinuses. There is an old blowout fracture of medial wall of right orbit. The mastoid air cells are normal. IMPRESSION: 1. Normal brain. Reviewed, dictated and finalized at location A. IMPRESSION: 1. Normal brain.
[2023-11-05 15:24] VITALS: BP 119/96; PULSE 102; RESP 18; TEMP 36.6; O2SAT 98
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
== END 2023-11-05 17:25 | disposition home or self-care (01) ==
LOC: ANHED 17:14
PROVIDERS: Emergency Provider Emergency Medicine
DX: S46.001A Unspecified injury of muscle(s) and tendon(s) of the rotator cuff of right shoulder, initial encounter (principal); S09.90XA Unspecified injury of head, initial encounter; F17.200 Nicotine dependence, unspecified, uncomplicated; V28.49XA Other motorcycle driver injured in noncollision transport accident in traffic accident, initial encounter
CPT/HCPCS: 70450; 73030; 99284; A4565

== ENCOUNTER 2024-04-29 17:46 | Emergency (ER) | payer OTHER, SELFPAY ==
--- NOTE | 2024-04-29 17:55 | ED_ITS ---
HPI - Male Genitourinary General Chief complaint: Urogenital-Male Stated complaint: Body Pain/Uti Symptoms Time Seen by Provider: 04/29/24 18:00 Mode of arrival: ambulatory Limitations: no limitations History of Present Illness HPI Narrative: 48-year-old male presents concern for unusual muscle aches, general malaise, dark colored urine. Reports symptoms started today, he still worsening, for work. Reports he has been doing a new exercise routine recently. MD Complaint: other (dark urine) Related Data Home Medications ?Medication ?Instructions ?Recorded ?Confirmed ?Last Taken ?Type No Home Medications 04/29/24 04/29/24 Unknown History Allergies Allergy/AdvReac Type Severity Reaction Status Date / Time No Known Allergies Allergy Verified 04/29/24 17:52 Review of Systems Review of Systems: CONSTITUTIONAL: Reports malaise. Denies chills, sweats, or fever. EYES: Denies visual changes, redness, or discharge. ENT: Denies rhinorrhea, congestion, sinus pain, otalgia or sore throat. CARDIOVASCULAR: Denies chest pain RESPIRATORY: Denies cough or dyspnea. GASTROINTESTINAL: Denies abdominal pain, nausea, vomiting, diarrhea, bloody, or mucous stools. GENITOURINARY: Denies dysuria. Reports dark-colored urine MUSCULOSKELETAL: Reports myalgia. NEUROLOGIC: Denies numbness, weakness All systems reviewed & are unremarkable except as noted in HPI and below PMFSH Past Medical History Medical History Anxiety Social History Social History (Updated 11/13/23 @ 14:07 by Florence Platt CMA) Smoking status: Former smoker Alcohol intake: current Alcohol use details: special occasions Substance use: current Substance use type: marijuana Do You Feel Safe in your Home?: Yes Lack of Transportation: No Lack of Food: Never True Current Housing: I Have Housing Concerned About Future Housing: No Difficulty Paying Gas/Electric Bills: No Difficulty Paying for Meds: No Currently Unemployed: No Education: High School Diploma/GED Difficulty w/ Childcare or Family Care: No Occupation/Education: occupation Gender identity (if verbalized by the patient): Male Sexual Orientation (if Verbalized by the Patient): Straight or Heterosexual Comments At time of signature, agree with nursing past medical, surgical, social and family history. There is no relevant family history pertinent to the presenting complaint Exam Narrative: GENERAL: Nontoxic-appearing and in no acute distress. HEAD: Normocephalic, atraumatic. EYES: PERRLA ENT: Nares clear. Mucous membranes moist. NECK: Supple. CHEST: No respiratory distress. Speaks in full sentences. HEART: Fast rate EXTREMITIES: Grossly Normal range of motion. No edema. SKIN: Warm, dry, no visible rash. NEURO: Alert and oriented x3. N PSYCH: Normal mood and affect Course Course Emergency Course: Patient is aware of, understands and agrees to be transferred to the emergency room. Patient agrees to proceed directly to the emergency department. Portions of this record may have been created with voice recognition software Level of Care: Express Care Visit Vital Signs Vital signs: Reviewed. Transfer Transfered to: [place] Transportation: Other (Private vehicle) Transfer rationale: Discolored urine, mylagia Accepting physician: Meghan MDM - Male Genitourinary MDM Narrative Medical decision making narrative: Patient is nontoxic appearing and in no acute distress Critical Care Time Critical Care Time Critical Care Time: No Discharge Plan Discharge Clinical Impression: Urine discoloration Patient Disposition: Acute Care Hospital Condition: Stable Patient Language: Gabonese Prescriptions: No Action No Home Medications Follow-up/Referrals: PHYSICIAN,INSURANCE VERIFICATION CLERK [Primary Care Provider] - Time of Disposition: 18:21
[2024-04-29 17:56] VITALS: BP 163/98; PULSE 110; RESP 16; TEMP 37.3; O2SAT 99
[2024-04-29 18:24] LABS: EDUAAPPEAR Cloudy; EDUABILI 2+ (Negative); EDUABLOOD 3+ (Negative); EDUACOLOR1 Brown; EDUAGLUCOSE Negative (Negative); EDUAKETONE 2+ (Negative); EDUALEUKO Negative (Negative); EDUANITRATE Negative (Negative); EDUAPROTEIN 3+ (Negative); EDUAUROBILI 0.2
== END 2024-04-29 18:13 | disposition short-term general hospital (02) ==
PROVIDERS: Emergency Provider Nurse Practitioner
DX: R82.998 Other abnormal findings in urine (principal); F12.90 Cannabis use, unspecified, uncomplicated
CPT/HCPCS: 81003; 99212; G0463

== ENCOUNTER 2024-04-29 18:26 | Inpatient (IN) | payer SELFPAY ==
--- NOTE | ~2024-04-29 | US_ITS ---
RIGHT UPPER QUADRANT ABDOMINAL ULTRASOUND (Doppler ultrasound interrogation techniques used as needed for this exam.) Ordering provider: Alex Christensen PA-C History: . Elevated LFTs . Comparison: None. FINDINGS: PANCREAS: Normal echotexture and size of the visualized portion. PORTAL VEIN: Hepatopedal flow demonstrated. Measures 1.4 cm. LIVER: Normal size and increased echotexture. No focal hepatic lesions or perihepatic fluid collectio ns are identified. BILIARY DUCTS: No intra or extrahepatic biliary dilation. Common bile duct measures 3.8 mm in diamete r which is normal for patient's age. GALLBLADDER: Normal. No stones, sludge, gallbladder wall thickening or pericholecystic fluid. Gallbla dder wall thickness is 2.6 mm. Negative sonographic Pagan's sign. FREE FLUID: None visualized within the upper abdomen. IMPRESSION: Fat infiltration of the liver. Otherwise, normal right upper quadrant ultrasound. Reviewed, dictated and finalized at location A. IMPRESSION: Fat infiltration of the liver. Otherwise, normal right upper quadrant ultrasou nd.
--- OUTSIDE RECORDS SUMMARY | 2024-04-29 18:29 | XMS_ITS | Clinical Summary ---
Author Organization [facility] Address [address] [place] [address] Phone Care Team Providers Care [employer] Name Role Phone Provider, Unknown Primary Care Provider Unavaila ble Social History Tobacco Use Types Packs/Day Years Used Date Smoking Tobacco: Never Assessed Sex and Gender Information Value Date Recorded Sex Assigned at Not on file Legal Sex Male 11:10 AM CDT Gender Identity Not on file Sexual Orientation Not on file Plan of Treatment Health Maintenance Due Date Last Done Comments Hepatitis C Virus (HCV) Screening 1997 Human Papillomavirus (HPV) Immunization (2 - Male 2-dose series) 04/03/2012 10/02/2011 Influenza Immunization (#1) 2023 SARS-COV-2 Immunization ( season) 2023 Respiratory Syncytial Virus (RSV) Immunization (Adult) (1 - 1-dose 75+ series) 2072 Hepatitis B Immunization Completed 999, 01/03/1998, 1997 DTaP/Tdap/Td Immunization Discontinued 2011, 10/30/2001, 04/10/2001, Additional history exists Meningococcal Immunization (ACWY) Aged Out 10/02/2011 No longer eligible based on patient's age to complete this topic TdaP Immunization Completed 10/02/2011 Pneumococcal Immunization Combined Aged Out No longer eligible based on patient's age to complete this topic Rotavirus Immunization Aged Out No lo nger eligible based on patient's age to complete this topic Insurance [place] [address] Care Teams [employer] Relationship Specialty Start Date End Date Provider, Unknown UNKNOWN PCP - General 12/08/20
[2024-04-29 18:45] VITALS: BP 143/88; PULSE 91; RESP 18; TEMP 36.7; O2SAT 99
[2024-04-29] MEDS: LACTATED RINGERS 1,000 ML 999 ML IV CONT ×3 (20:26→20:27)
[2024-04-29 20:35] LABS: Basophils Percent Auto 0.3 % (0.2-1.2); Eosinophils Absolute Auto 0.2 K/mm3 (0-0.3); Eosinophils Percent Auto 2.4 % (0-4.4); Hematocrit 44.9 % (42.0-52.0); Hemoglobin 15.7 g/dL (14.0-18.0); Immature Granulocyte Absolute 0.02 K/mm3 (0.00-0.031); Immature Granulocyte Percent A 0.2 % (0-0.5); Lymphocytes Absolute Auto 3.24 K/mm3 (0.9-3.2); Lymphocytes Percent Auto 32.1 % (18.3-44.2); Mean Corpuscular Hemoglobin 29.4 pg (26-34); Mean Corpuscular Volume 84.1 fl (80-100); Mean Platelet Volume 9.5 fl (7.4-10.4); Monocytes Absolute Auto 0.7 K/mm3 (0.1-0.6); Monocytes Percent Auto 6.7 % (2.6-8.5); Neutrophils Absolute Auto 5.9 K/mm3 (1.3-6.7); Neutrophils Percent Auto 58.3 % (45.5-73.1); Platelet Count Result 288 k/mm3 (150-375); Red Blood Count 5.34 M/mm3 (4.6-6.20); Red Cell Distribution Width 12.6 % (11.5-14.5); White Blood Count 10.1 K/mm3 (4.5-10.0)
--- NOTE | 2024-04-29 20:39 | ED.MALEGU ---
HPI - Male Genitourinary General Chief complaint: Urogenital-Male Stated complaint: muscle pain, dark urine from UC Time Seen by Provider: 04/29/24 20:14 History of Present Illness HPI Narrative: 28-year-old male otherwise healthy presenting to the emergency department for evaluation of muscle pain, dark urine. Recently started intensive exercise program but does not usually go the gym or exercise. States that he is having pain in muscles in the bilateral arms and chest where he was working out recently. Took some ibuprofen at home without any relief of symptoms. Knows that he was not urinating as much today when he did go was very dark brown. Went to urgent care and was referred to the emergency department for suspected rhabdomyolysis. Patient denies any fever, chills, back pain. No abdominal pain, chest pain, shortness a breath. No history of rhabdomyolysis. No drug use. No smoking. He was otherwise in his normal state of health. No injury. Related Data Home Medications ?Medication ?Instructions ?Recorded ?Confirmed ?Last Taken ?Type No Home Medications 04/29/24 04/29/24 Unknown History Allergies Allergy/AdvReac Type Severity Reaction Status Date / Time No Known Allergies Allergy Verified 04/29/24 18:27 Review of Systems Review of Systems: As reviewed above in HPI [facility] Past Medical History Medical History Anxiety Social History Social History Smoking status: Former smoker Alcohol intake: current Alcohol use details: special occasions Substance use: current Substance use type: marijuana Do You Feel Safe in your Home?: Yes Lack of Transportation: No Lack of Food: Never True Current Housing: I Have Housing Concerned About Future Housing: No Difficulty Paying Gas/Electric Bills: No Difficulty Paying for Meds: No Currently Unemployed: No Education: High School Diploma/GED Difficulty w/ Childcare or Family Care: No Occupation/Education: occupation Gender identity (if verbalized by the patient): Male Sexual Orientation (if Verbalized by the Patient): Straight or Heterosexual Exam Narrative: GENERAL: [Well-appearing, well-nourished, and in no acute distress.] HEAD: [Normocephalic, atraumatic.] EYES: [PERRLA and EOMI.] ENT: Nares clear, no rhinorrhea or epistaxis. Mucous membranes dry. NECK: Supple. CHEST: [Clear to auscultation. No respiratory distress.] HEART: [Regular rate and rhythm]. No murmur heard. [Normal peripheral pulses.] ABDOMEN: [Soft, nondistended], [nontender], [No rigidity or guarding] EXTREMITIES: Normal range of motion. [No edema.] SKIN: Warm, dry, no rash. NEURO: [No focal deficits]. Alert and oriented [x3.] PSYCH: [Normal mood and affect.] Course Vital Signs Vital signs: Vital Signs Temperature 36.7 C 04/29/24 18:45 Pulse Rate 91 04/29/24 18:45 Respiratory Rate 18 04/29/24 18:45 Blood Pressure 143/88 H 04/29/24 18:45 Pulse Oximetry 99 04/29/24 18:45 Oxygen Delivery Room Air 04/29/24 18:45 Temperature 36.7 C 04/29/24 18:45 Pulse Rate 91 04/29/24 18:45 Respiratory Rate 18 04/29/24 18:45 Blood Pressure 143/88 H 04/29/24 18:45 Pulse Oximetry 99 04/29/24 18:45 Oxygen Delivery Room Air 04/29/24 18:45 MDM - Male Genitourinary MDM Narrative Medical decision making narrative: 28-year-old otherwise healthy male presenting to the ER for evaluation of muscle aches and dark urine with association to new exercise program and intense workouts at the gym over the last 3 days. Symptoms today included decreased urination and dark colored urine as well as myalgias in the arms and chest. Went to urgent care and sent to the ER for evaluation. He has normal vital signs without any significant hypertension, tachycardia, fever or hypoxia. Unremarkable examination but does have urine that appears to be dark [employer]a colored. Suspicion presently is for rhabdomyolysis, acute kidney injury, myoglobinuria versus profound dehydration. Patient was bolused 3 L of fluid, CBC, BMP and CPK levels were drawn, urinalysis and drug screen ordered. Workup shows no leukocytosis or anemia. Normal BUN and creatinine, elevated AST compared to ALT which is a sign of muscle breakdown and consistent with his rhabdomyolysis with a CPK greater than 16,000 after dilution and the lab. Urinalysis shows blood high specific gravity but no signs of infection. Urine drug screen positive for cannabis. Patient was re-evaluated after 3 L of fluid and felt significantly improved but was informed of his rhabdomyolysis diagnosis and need for copious hydration here in the ED and admission to the hospital for evaluation and monitoring of his CPK level and kidney function. Patient comfortable with this plan, high doses fluid maintenance infusions were ordered as well as serial laboratory studies. Awaiting hospitalist for discussion of admission to a telemetry monitored bed. EKG obtained and shows sinus rhythm without ectopy or interval concerns. Spoke to the hospitalist Dr. Vazquez who agreed to accept the patient to a telemetry monitored bed at this time. Patient remained hemodynamically stable and admit orders were placed. Medical Records Attestation: I reviewed the patient's medical records. Lab Data Attestation: I reviewed the patient's lab results. 04/29/24 20:29 04/29/24 20:29 Labs: Lab Results 04/29/24 Range/Units 20:29 WBC 10.1 H (4.5-10.0) K/mm3 RBC 5.34 (4.6-6.20) M/mm3 Hgb 15.7 (14.0-18.0) g/dL Hct 44.9 (42.0-52.0) % MCV 84.1 (80-100) fl MCH 29.4 (26-34) pg MCHC 35.0 (32-36) g/dl RDW 12.6 (11.5-14.5) % Plt Count 288 (150-375) k/mm3 MPV 9.5 (7.4-10.4) fl Immature Gran % (Auto) 0.2 (0-0.5) % Neut % (Auto) 58.3 (45.5-73.1) % Lymph % (Auto) 32.1 (18.3-44.2) % [place] % (Auto) 6.7 (2.6-8.5) % Eos % (Auto) 2.4 (0-4.4) % Baso % (Auto) 0.3 (0.2-1.2) % Lymph # (Auto) 3.24 H (0.9-3.2) K/mm3 [place] # (Auto) 0.7 H (0.1-0.6) K/mm3 Eos # (Auto) 0.2 (0-0.3) K/mm3 Baso # (Auto) 0.0 (0.0-0.1) K/mm3 Abs Immat Gran (auto) 0.02 (0.00-0.031) K/mm3 Absolute Neuts (auto) 5.9 (1.3-6.7) K/mm3 Absolute Nucleated RBC 0.000 (0.0-0.012) K/mm3 Nucleated RBC % 0.0 (0.0-0.2) % Sodium 141 (137-145) mmol/L Potassium 4.0 (3.4-5.0) mmol/L Chloride 105 (98-107) mmol/L Carbon Dioxide 25 (22-30) mmol/L Anion Gap 11 (4-12) mmol/L BUN 17 (9-20) mg/dL Creatinine 1.13 (0.7-1.3) mg/dL Estim Creat Clear Calc 82 ml/min Estimated GFR > 60 (59 - ) Glucose 111 H (65-110) mg/dL Calcium 10.1 (8.4-10.2) mg/dL Total Bilirubin 0.8 (0.2-1.3) mg/dL AST 1057 H (17-59) U/L ALT 183 H (6-50) U/L Alkaline Phosphatase 89 (38-126) U/L Total Creatine Kinase > 55558 H (55-170) U/L Total Protein 9.0 H (6.3-8.2) g/dL Albumin 4.9 (3.5-5.1) g/dL Urine Color Dark yellow (Yellow) Urine Appearance Turbid H (Clear) Urine pH 5.5 (5.0-9.0) Ur Specific [place] 1.036 H (1.001-1.035) Urine Protein 2+ H (Negative) mg/dL Urine Glucose (UA) Negative (Negative) mg/dL Urine Ketones Negative (Negative) mg/dL Ur Blood (Man) 2+ H (Negative) Urine Nitrate Negative (Negative) Urine Bilirubin 1+ H (Negative) Urine Urobilinogen 0.2 (<2.0) mg/dL Add Ur Microanalysis Reviewed Leukocyte Esterase Rfl 1+ H (Negative) CIPRIANO/UL Urine RBC >100 H (0-2) /hpf Urine WBC 0-5 (0-3) /hpf Ur Squamous Epith Cells Moderate (Few) /hpf Amorphous Sediment Moderate H (None) Urine Bacteria None seen /hpf Urine Casts 0-2 Hyaline Casts Present (None) /lpf Urine Opiates Screen Negative (Negative) Urine Methadone Screen Negative (Negative) Ur Barbiturates Screen Negative (Negative) Ur Phencyclidine Scrn Negative (Negative) Ur Amphetamine Screen Negative (Negative) U Benzodiazepines Scrn Negative (Negative) Urine Cocaine Screen Negative (Negative) U Cannabinoids Screen Positive A (Negative) ECG Data EKG #1: Attestation: I personally reviewed and interpreted this ECG as follows: ECG completion date: 04/29/24 ECG completion time: 21:16 Prior ECG tracings: not available for review Interpretation: Sinus rhythm, no signs of ST segment elevations, depressions or inversions. QTC 395, QRS 81, ID interval 132. Regular rate at 74. No previous EKG for comparison. Overall normal sinus rhythm. No signs of ischemia or ectopy. Discharge Plan Discharge Clinical Impression: Exertional rhabdomyolysis, Myalgia, Elevated CPK Patient Disposition: Still a Patient Condition: Stable Patient Language: Estonian Prescriptions: No Action No Home Medications Follow-up/Referrals: PHYSICIAN,METALSMITH APPRENTICE [Primary Care Provider] - Time of Disposition: 22:22
--- NOTE | 2024-04-29 20:43 | ECG_ITS ---
Test Date: 2024-04-29 21:16:08 Measurements Intervals [place] Rate: 74 P: 66 NE: 132 QRS: 84 QRSD: 81 T: 55 QT: 355 QTc: 395 Interpretive Statements SINUS RHYTHM No previous ECG available for comparison Electronically Signed On 04-30-2024 14:04:46 CDT by Kyle Vega M.D.
[2024-04-29 20:46] LABS: Alanine Aminotransferase 183 U/L (6-50); Albumin Level 4.9 g/dL (3.5-5.1); Alkaline Phosphatase 89 U/L (38-126)
[2024-04-29 20:47] LABS: Anion Gap 11 mmol/L (4-12); Bilirubin,Total 0.8 mg/dL (0.2-1.3); Blood Urea Nitrogen 17 mg/dL (9-20); Calcium 10.1 mg/dL (8.4-10.2); Carbon Dioxide 25 mmol/L (22-30); Chloride 105 mmol/L (98-107); Estimated CRCL calculation 82 ml/min; Estimated Glomerular Filt Rate > 60; Glucose 111 mg/dL (65-110); Sodium 141 mmol/L (137-145)
[2024-04-29 20:48] LABS: Add Urine Microscopic? YES; Appearance Urine Turbid (Clear); Bacteria Urine None Seen /hpf; Bilirubin Urine 1+ (Negative); Blood Urine 2+ (Negative); Color Urine Dark Yellow (Yellow); Glucose Urine UA Negative (Negative); Hyaline Casts Urine Present /lpf; Ketones Urine Negative (Negative); Leukocyte Esterase Ur 1+ LEU/UL (Negative); Need Manual Microscopic Reviewed; Nitrate Urine Negative (Negative); Non Pathogenic Casts 0-2; Protein Urine 2+ mg/dL (Negative); RBC Urine >100 /hpf (0-2); Specific Grav Ur 1.036 (1.001-1.035); Squamous Epithelial Cell Urine Moderate /hpf (Few); Urobilinogen Urine 0.2 mg/dL (<2.0); WBC Urine 0-5 /hpf (0-3); pH Urine 5.5 (5.0-9.0)
[2024-04-29 20:55] LABS: Aspartate Amino Transferase 1057 U/L (17-59)
--- OUTSIDE RECORDS SUMMARY | 2024-04-29 20:55 | XMS_ITS | Clinical Summary ---
Author Organization [facility] Address [address] [place] [address] Phone Care Team Providers Care Seafood Team Member Name Role Phone Provider, Unknown Primary Care [...] patient's age to complete this topic Insurance [facility] [place] [address] Care Teams Seafood Team Member Relationship Specialty Start Date End Date Provider, Unknown UNKNOWN PCP - General 12/08/20
[2024-04-29 20:57] LABS: Amorphous Sediment Urine Moderate
[2024-04-29 21:39] LABS: Barbiturate Screen Urine Negative (Negative); Benzodiazepines Screen Urine Negative (Negative)
[2024-04-29 21:41] LABS: Amphetamine Screen Urine Negative (Negative); Cocaine Screen Urine Negative (Negative); Methadone Screen Urine Negative (Negative); Opiate Screen Urine Negative (Negative); Phencyclidine Screen Urine Negative (Negative)
[2024-04-29 21:46] LABS: Cannabinoid Screen Urine Positive (Negative)
[2024-04-29 21:50] LABS: Creatine Kinase > 16000 U/L (55-170)
[2024-04-29] MEDS: LACTATED RINGERS 1,000 ML 300 ML IV CONT (22:20)
--- NOTE | 2024-04-29 22:20 | P.HP_ITS ---
H&P: HPI History of Present Illness Date/Time: 04/29/24 23:35 Chief Complaint: Muscle pain and dark urine Narrative: 28-year-old male with no significant past medical history presented to the ER from urgent care due to muscle pain and dark urine. The patient reports that he and his girlfriend were starting a new fitness routine and 3 days ago he could not wait to start the new routine so he went to the gym and lifted weights on his own. Then that evening when his girlfriend wanted to go to the gym he then proceeded to do the same workout that evening. He reports that the workout was much more intense than his usual work and concentrated on his arms and chest and upper back. He reports that he usually only works out 1 or 2 times a week after her those were cats he has become progressively more sore in his chest upper arms and upper back. He reports he did not have much urine output yesterday and was urine he did pass today was extremely dark in color. 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 He reported that he was having trouble lifting his arms above his shoulders. Subsequently he ended up going to urgent care. Urgent care directed the patient to come to the ER. In the ER patient's urine was noted to be the color of Coca-Cola in the patient's CK was greater than 16,000 with elevated transaminases. He received 3 L of LR and reported improvement in symptoms. He reports that he has not had much appetite due to his symptoms. He denies any fevers or chills. He denies any dysuria or hematuria. Review of Systems 2 Review of Systems: 12 systems were reviewed with pertinent positives and negatives per HPI. Except as documented in the HPI, all other systems were reviewed and are negative. [facility] Past Medical History Medical History Anxiety Surgical History Surgical History (Updated 04/30/24 @ 01:31 by Adelaide Vazquez DO) No history of previous surgery Family History Family History (Updated 04/30/24 @ 01:33 by Adelaide Vazquez DO) Other Adopted Social History Social History (Updated 04/30/24 @ 01:33 by TIM Hood Social History: The patient lives with a roommate. He is single and does not have any children. 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 He smokes marijuana daily. He did used to vape for about 10 years but quit vaping in 2023. He drinks alcohol infrequently and in moderation. Code status: Full code Surrogate decision maker: Brother Smoking status: Former smoker Tobacco type: e-cigarettes/vaping Alcohol intake: current Alcohol use details: special occasions Substance use: current Substance use type: marijuana Do You Feel Safe in your Home?: Yes Lack of Transportation: No Lack of Food: Never True Current Housing: I Have Housing Concerned About Future Housing: No Difficulty Paying Gas/Electric Bills: No Difficulty Paying for Meds: No Currently Unemployed: No Education: High School Diploma/GED Difficulty w/ Childcare or Family Care: No Occupation/Education: occupation Gender identity (if verbalized by the patient): Male Sexual Orientation (if Verbalized by the Patient): Straight or Heterosexual Spiritual care concerns: No Meds Home Medications and Allergies Home Medications ?Medication ?Instructions ?Recorded ?Confirmed ?Type No Home Medications 04/29/24 04/29/24 History Allergies Allergy/AdvReac Type Severity Reaction Status Date / Time No Known Allergies Allergy Verified 04/29/24 18:27 Vital Signs Vital Signs - 24 hr 04/29/24 18:45 Temperature 98.1 F Pulse Rate 91 Respiratory Rate 18 Blood Pressure 143/88 H Pulse Oximetry 99 Oxygen Delivery Room Air Exam 2 Narrative: Weight 80.4 kg BMI 27.8 Const: Other: No acute distress, well-developed well-nourished HENMT: Other: Mucous membranes are moist, no oral pharyngeal erythema, head is normocephalic atraumatic Eyes: Other: Pupils are equal and reactive, no scleral icterus, no conjunctival pallor Neck: Other: Normal neck circumference, no thyromegaly Resp: Other: Clear to auscultation bilaterally, no increased work of breathing Cardio: Other: Regular rate, regular rhythm, 2+ bilateral radial and pedal pulses, no JVD, no murmur GI: Other: Soft, nontender, nondistended, normoactive bowel sounds Skin: Other: No jaundice, no pallor Neuro: Other: Alert oriented, speech is clear, no facial asymmetry, no localizing neurologic deficits noted during the course of conversation Extrem: Other: No clubbing, cyanosis or edema, moves all extremities equally Psych: Other: Appropriate mood and affect, pleasant and cooperative, judgment and insight intact H&P: Results Labs Labs: Laboratory Tests 04/29/24 20:29 04/29/24 20:29 04/29/24 20:29 WBC 10.1 H RBC 5.34 Hgb 15.7 Hct 44.9 MCV 84.1 MCH 29.4 MCHC 35.0 RDW 12.6 Plt Count 288 MPV 9.5 Immature Gran % (Auto) 0.2 Neut % (Auto) 58.3 Lymph % (Auto) 32.1 [place] % (Auto) 6.7 Eos % (Auto) 2.4 Baso % (Auto) 0.3 Lymph # (Auto) 3.24 H [place] # (Auto) 0.7 H Eos # (Auto) 0.2 Baso # (Auto) 0.0 Abs Immat Gran (auto) 0.02 Absolute Neuts (auto) 5.9 Absolute Nucleated RBC 0.000 Nucleated RBC % 0.0 Sodium 141 Potassium 4.0 Chloride 105 Carbon Dioxide 25 Anion Gap 11 BUN 17 Creatinine 1.13 Estim Creat Clear Calc 82 Estimated GFR > 60 Glucose 111 H Calcium 10.1 Total Bilirubin 0.8 AST 1057 H ALT 183 H Alkaline Phosphatase 89 Total Creatine Kinase > 72995 H Total Protein 9.0 H Albumin 4.9 Urine Color Dark yellow Urine Appearance Turbid H Urine pH 5.5 Ur Specific [place] 1.036 H Urine Protein 2+ H Urine Glucose (UA) Negative Urine Ketones Negative Ur Blood (Man) 2+ H Urine Nitrate Negative Urine Bilirubin 1+ H Urine Urobilinogen 0.2 Add Ur Microanalysis Reviewed Leukocyte Esterase Rfl 1+ H Urine RBC >100 H Urine WBC 0-5 Ur Squamous Epith Cells Moderate Amorphous Sediment Moderate H Urine Bacteria None seen Urine Casts 0-2 Hyaline Casts Present Urine Opiates Screen Negative Urine Methadone Screen Negative Ur Barbiturates Screen Negative Ur Phencyclidine Scrn Negative Ur Amphetamine Screen Negative U Benzodiazepines Scrn Negative Urine Cocaine Screen Negative U Cannabinoids Screen Positive A Assessment and Plan Assessment and plan (1) Exertional rhabdomyolysis: Code(s): M62.82 - Rhabdomyolysis Status: Acute (2) Transaminitis: Code(s): R74.01 - Elevation of levels of liver transaminase levels Status: Acute Plan Patient has rhabdomyolysis due to over exertion. Is associated myalgias and secondary transaminitis. Patient received 3 L of isotonic fluid administration in the ER. Will continue aggressive IV fluid administration over the next 24-48 hours and monitor serial CK levels. Will repeat CMP level in a.m.. Will monitor strict I&O's. Will minimize nephrotoxic and hepatotoxic medications to reduce risk of kidney injury. Current kidney function is normal and stable. Will still provide Tylenol only and Toradol for myalgias but will provide decreased doses. Will add Zofran as needed for nausea. Quality VTE Prophylaxis VTE prophylaxis: pharmacologic ordered (Lovenox 40 mg subQ daily.) Hospitalist [facility] Advance Care Plan I have confirmed that the patient's Advanced Care Plan is present, code status is documented, or surrogate decision maker is listed in patient medical record.: Yes Medication Reconciliation I have utilized all available resources to obtain, update and review the patients current medications (includes all prescriptions, OTC, herbals, cannabis, and nutritional supplements).: Yes
[2024-04-29 22:23] VITALS: BP 121/77; PULSE 75; RESP 15; O2SAT 97
[2024-04-29 23:16] VITALS: BMI 27.7; BMI 29.7
[2024-04-29] MEDS: KETOROLAC 15 MG/ML VIAL (*BKC) IV PUSH (23:18)
[2024-04-29 23:22] VITALS: BP 150/82; PULSE 83; RESP 15; O2SAT 97
[2024-04-30] VITALS (10 sets, daily range): BP systolic 140–152; BP diastolic 81–90; PULSE 75–111; RESP 15–20; TEMP 36.4–36.7; O2SAT 97–100
--- NOTE | 2024-04-30 00:19 | ADMGEN ---
This patient, Helio Arnold, was admitted to [facility] Surg Room 329-01. Patient/family oriented to hospital policies and general routines including ID bracelet, bed and alarms, visiting hours, pain management, procedures, bathroom and other care routines, personal items, smoking policy, room service/diet, and visiting hours. Information on how to activate the Rapid Response Team has been discussed. Patient/Family are encouraged to report perceived risks to care and to ask questions if they do not understand what they are told or what they should do.
[2024-04-30 03:08] LABS: Creatine Kinase > 16000 U/L (55-170)
[2024-04-30] MEDS: LACTATED RINGERS 1,000 ML 300 ML IV CONT ×7 (03:30→23:25)
[2024-04-30] MEDS: ACETAMINOPHEN 500 MG TABLET PO (03:31)
--- NOTE | 2024-04-30 07:43 | P.PNIM_ITS ---
Progress Note: A&P Assessment and Plan (1) Exertional rhabdomyolysis: Code(s): M62.82 - Rhabdomyolysis Status: Acute Assessment and Plan: * CK > 16,000 in ED * Given 3L LR bolus in ED * Will continue aggressive hydration and monitoring of CK/CMP * Low dose tylenol and toradol for prn pain * On 04/30 am, CK >16,000 (2) Transaminitis: Code(s): R74.01 - Elevation of levels of liver transaminase levels Status: Acute Assessment and Plan: * ED workup= AST:1057, ALT:183 * Likely secondary to exertional rhabdomyolysis * On 04/30: AST: 1191, ALT: 210 Time Spent With Patient Time: Subjective Date/time seen: 04/30/24 07:43 Interval history: Patient is a 28 year old male who presented to the emergency department with severe muscle pain and dark urine after starting a new intense exercise routine. He then went to an urgent care who directed the pt to go to the ED where he was found to have a CK greater than 16,000 with elevated transaminases. He received 3L of LR and reported improvement of symptoms. 04/30/2024 Patient is resting comfortably in the chair besides the bed. He states that his overall muscle pain has improved but still endorses an achey feeling in his upper extremities and shoulders. Patient continues to be rehydrated via IVF and continues to have to monitoring of CK and electrolytes. Review of Systems Review of Systems: 12 systems were reviewed with pertinent positives and negatives per HPI. Except as documented in the HPI, all other systems were reviewed and are negative. Exam Narrative: Weight 80.4 kg BMI 27.8 Const: Other: No acute distress, well-developed well-nourished HENMT: Other: Mucous membranes are moist, no oral pharyngeal erythema, head is normocephalic atraumatic Eyes: Other: Pupils are equal and reactive, no scleral icterus, no conjunctival pallor Neck: Other: Normal neck circumference, no thyromegaly Resp: Other: Clear to auscultation bilaterally, no increased work of breathing Cardio: Other: Regular rate, regular rhythm, 2+ bilateral radial and pedal pulses, no JVD, no murmur GI: Other: Soft, nontender, nondistended, normoactive bowel sounds Skin: Other: No jaundice, no pallor Neuro: Other: Alert oriented, speech is clear, no facial asymmetry, no localizing neurologic deficits noted during the course of conversation Extrem: Other: No clubbing, cyanosis or edema, moves all extremities equally Psych: Other: Appropriate mood and affect, pleasant and cooperative, judgment and insight intact Objective Data Vital Signs Vital Signs: Vital Signs - 24 hr 04/29/24 18:45 04/29/24 22:23 04/29/24 23:22 Temperature 98.1 F Pulse Rate 91 75 83 Respiratory Rate 18 15 15 Blood Pressure 143/88 H 121/77 150/82 H Pulse Oximetry 99 97 97 Oxygen Delivery Room Air 04/30/24 00:00 04/30/24 00:26 04/30/24 04:00 Temperature Pulse Rate 97 97 78 Respiratory Rate 15 Blood Pressure Pulse Oximetry 97 Oxygen Delivery Room Air 04/30/24 05:49 Temperature 98.0 F Pulse Rate 80 Respiratory Rate 20 Blood Pressure 146/81 H Pulse Oximetry 100 Oxygen Delivery Intake/Output Intake/Output: Intake & Output 04/27/24 04/28/24 04/29/24 04/30/24 23:59 23:59 23:59 23:59 Intake Total 3000 1750 Output Total 275 Balance 3000 1475 Meds/Results Medications: Active Medications Generic Name Dose Route Start Last Admin Trade Name Freq PRN Reason Stop Dose Admin Acetaminophen 500 mg 04/29/24 22:30 04/30/24 03:31 Acetaminophen 500 Mg Tablet PO 500 mg Q6H PRN Administration Mild Pain (1-3) or Fever Enoxaparin Sodium 40 mg 04/30/24 09:00 Enoxaparin 40 Mg/0.4 Ml Syringe SUB-Q DAILY MICHAEL Lactated Ringer's 1,000 mls @ 300 mls/hr 04/29/24 22:00 04/30/24 05:50 Lr - Lactated Ringers Iv IV CONT 300 mls/hr .Q3H20M MICHAEL Administration Ketorolac Tromethamine 15 mg 04/29/24 22:30 04/29/24 23:18 Ketorolac 15 Mg/Ml Vial (*Bkc) IV PUSH 15 mg Q6H PRN Administration Pain Rated 7-10 Ondansetron HCl 4 mg 04/29/24 22:36 Ondansetron Inj 4 Mg/2 Ml Vial IV PUSH Q6H PRN Nausea And Vomiting Labs Labs: Laboratory Results - last 24 hr 04/29/24 04/30/24 20:29 02:07 WBC 10.1 H RBC 5.34 Hgb 15.7 Hct 44.9 MCV 84.1 MCH 29.4 MCHC 35.0 RDW 12.6 Plt Count 288 MPV 9.5 Immature Gran % (Auto) 0.2 Neut % (Auto) 58.3 Lymph % (Auto) 32.1 [place] % (Auto) 6.7 Eos % (Auto) 2.4 Baso % (Auto) 0.3 Lymph # (Auto) 3.24 H [place] # (Auto) 0.7 H Eos # (Auto) 0.2 Baso # (Auto) 0.0 Abs Immat Gran (auto) 0.02 Absolute Neuts (auto) 5.9 Absolute Nucleated RBC 0.000 Nucleated RBC % 0.0 Sodium 141 Potassium 4.0 Chloride 105 Carbon Dioxide 25 Anion Gap 11 BUN 17 Creatinine 1.13 Estim Creat Clear Calc 82 Estimated GFR > 60 Glucose 111 H Calcium 10.1 Total Bilirubin 0.8 AST 1057 H ALT 183 H Alkaline Phosphatase 89 Total Creatine Kinase > 40543 H > 84779 H Total Protein 9.0 H Albumin 4.9 Urine Color Dark yellow Urine Appearance Turbid H Urine pH 5.5 Ur Specific [place] 1.036 H Urine Protein 2+ H Urine Glucose (UA) Negative Urine Ketones Negative Ur Blood (Man) 2+ H Urine Nitrate Negative Urine Bilirubin 1+ H Urine Urobilinogen 0.2 Add Ur Microanalysis Reviewed Leukocyte Esterase Rfl 1+ H Urine RBC >100 H Urine WBC 0-5 Ur Squamous Epith Cells Moderate Amorphous Sediment Moderate H Urine Bacteria None seen Urine Casts 0-2 Hyaline Casts Present Urine Opiates Screen Negative Urine Methadone Screen Negative Ur Barbiturates Screen Negative Ur Phencyclidine Scrn Negative Ur Amphetamine Screen Negative U Benzodiazepines Scrn Negative Urine Cocaine Screen Negative U Cannabinoids Screen Positive A Quality VTE Prophylaxis VTE prophylaxis: pharmacologic ordered (Lovenox 40 mg subQ daily.)
[2024-04-30 09:11] LABS: Alanine Aminotransferase 210 U/L (6-50); Albumin Level 4.3 g/dL (3.5-5.1); Alkaline Phosphatase 74 U/L (38-126); Anion Gap 7 mmol/L (4-12); Bilirubin,Total 1.2 mg/dL (0.2-1.3); Blood Urea Nitrogen 10 mg/dL (9-20); Calcium 9.4 mg/dL (8.4-10.2); Carbon Dioxide 27 mmol/L (22-30); Chloride 104 mmol/L (98-107); Estimated CRCL calculation 113 ml/min; Estimated Glomerular Filt Rate > 60; Glucose 104 mg/dL (65-110); Potassium 4.1 mmol/L (3.4-5.0); Sodium 138 mmol/L (137-145)
[2024-04-30 09:19] LABS: Aspartate Amino Transferase 1191 U/L (17-59)
[2024-04-30] MEDS: ENOXAPARIN 40 MG/0.4 ML SYRINGE SUB-Q (09:22)
[2024-04-30] MEDS: KETOROLAC 15 MG/ML VIAL (*BKC) IV PUSH (09:54)
[2024-04-30 10:49] LABS: Creatine Kinase > 16000 U/L (55-170)
[2024-04-30 17:10] LABS: Creatine Kinase > 16000 U/L (55-170)
[2024-04-30 21:56] LABS: Creatine Kinase > 16000 U/L (55-170)
[2024-05-01] VITALS (10 sets, daily range): BP systolic 114–148; BP diastolic 68–83; PULSE 63–107; RESP 14–16; TEMP 36.6–36.9; O2SAT 92–100
[2024-05-01] MEDS: LACTATED RINGERS 1,000 ML 300 ML IV CONT ×7 (03:00→23:34)
--- NOTE | 2024-05-01 07:10 | P.PNIM_ITS ---
Progress Note: A&P Assessment and Plan (1) Exertional rhabdomyolysis: Code(s): M62.82 - Rhabdomyolysis Status: Acute Assessment and Plan: * CK > 16,000 in ED * Given 3L LR bolus in ED * Will continue aggressive hydration and monitoring of CK/CMP * Low dose tylenol and toradol for prn pain * On 05/01 am, CK >16,000 (2) Transaminitis: Code(s): R74.01 - Elevation of levels of liver transaminase levels Status: Acute Assessment and Plan: * ED workup= AST:1057, ALT:183 * Likely secondary to exertional rhabdomyolysis * On 05/01: AST: 1239, ALT: 250 Time Spent With Patient Time: Subjective Date/time seen: 05/01/24 07:10 Interval history: Patient is a 28 year old male who presented to the emergency department with severe muscle pain and dark urine after starting a new intense exercise routine. He then went to an urgent care who directed the pt to go to the ED where he was found to have a CK greater than 16,000 with elevated transaminases. He received 3L of LR and reported improvement of symptoms. 05/01/2024 Patient is sitting comfortably at bedside. He continues to receive generous IVF therapy. He endorses a decrease in overall pain, especially in his upper extremities. He reports sleeping well without needing any pain medication and understands that we'll continue to hydrate, trend his CK, and monitor his pain levels. Review of Systems Review of Systems: 12 systems were reviewed with pertinent positives and negatives per HPI. Except as documented in the HPI, all other systems were reviewed and are negative. Exam Narrative: Weight 80.4 kg BMI 27.8 Const: Other: No acute distress, well-developed well-nourished HENMT: Other: Mucous membranes are moist, no oral pharyngeal erythema, head is normocephalic atraumatic Eyes: Other: Pupils are equal and reactive, no scleral icterus, no conjunctival pallor Neck: Other: Normal neck circumference, no thyromegaly Resp: Other: Clear to auscultation bilaterally, no increased work of breathing Cardio: Other: Regular rate, regular rhythm, 2+ bilateral radial and pedal pulses, no JVD, no murmur GI: Other: Soft, nontender, nondistended, normoactive bowel sounds Skin: Other: No jaundice, no pallor Neuro: Other: Alert oriented, speech is clear, no facial asymmetry, no localizing neurologic deficits noted during the course of conversation Extrem: Other: No clubbing, cyanosis or edema, moves all extremities equally Psych: Other: Appropriate mood and affect, pleasant and cooperative, judgment and insight intact Objective Data Vital Signs Vital Signs: Vital Signs - 24 hr 04/30/24 08:00 04/30/24 08:00 04/30/24 12:00 Temperature Pulse Rate 78 75 Respiratory Rate Blood Pressure Pulse Oximetry Oxygen Delivery Room Air 04/30/24 14:00 04/30/24 16:00 04/30/24 20:00 Temperature 97.8 F Pulse Rate 90 106 H Respiratory Rate 20 Blood Pressure 152/90 H Pulse Oximetry 100 Oxygen Delivery Room Air 04/30/24 20:02 04/30/24 20:32 05/01/24 00:02 Temperature 97.5 F L Pulse Rate 111 H 98 63 Respiratory Rate 16 Blood Pressure 140/82 Pulse Oximetry 98 Oxygen Delivery 05/01/24 04:02 05/01/24 04:32 Temperature 97.8 F Pulse Rate 65 76 Respiratory Rate 14 Blood Pressure 114/80 Pulse Oximetry 100 Oxygen Delivery Intake/Output Intake/Output: Intake & Output 04/28/24 04/29/24 04/30/24 05/01/24 23:59 23:59 23:59 23:59 Intake Total 3000 8687 3000 Output Total 4975 1100 Balance 3000 3712 1900 Meds/Results Medications: Active Medications Generic Name Dose Route Start Last Admin Trade Name Freq PRN Reason Stop Dose Admin Acetaminophen 500 mg 04/29/24 22:30 04/30/24 03:31 Acetaminophen 500 Mg Tablet PO 500 mg Q6H PRN Administration Mild Pain (1-3) or Fever Enoxaparin Sodium 40 mg 04/30/24 09:00 04/30/24 09:22 Enoxaparin 40 Mg/0.4 Ml Syringe SUB-Q 40 mg DAILY MICHAEL Administration Lactated Ringer's 1,000 mls @ 300 mls/hr 04/29/24 22:00 05/01/24 06:22 Lr - Lactated Ringers Iv IV CONT 300 mls/hr .Q3H20M MICHAEL Administration Ketorolac Tromethamine 15 mg 04/29/24 22:30 04/30/24 09:54 Ketorolac 15 Mg/Ml Vial (*Bkc) IV PUSH 15 mg Q6H PRN Administration Pain Rated 7-10 Ondansetron HCl 4 mg 04/29/24 22:36 Ondansetron Inj 4 Mg/2 Ml Vial IV PUSH Q6H PRN Nausea And Vomiting Labs Labs: Laboratory Results - last 24 hr 04/30/24 04/30/24 04/30/24 08:19 14:16 21:11 Sodium 138 Potassium 4.1 Chloride 104 Carbon Dioxide 27 Anion Gap 7 BUN 10 D Creatinine 0.91 Estim Creat Clear Calc 113 Estimated GFR > 60 Glucose 104 Calcium 9.4 Total Bilirubin 1.2 AST 1191 H ALT 210 H Alkaline Phosphatase 74 Total Creatine Kinase > 16164 H > 81891 H > 36158 H Total Protein 8.0 Albumin 4.3 Quality VTE Prophylaxis VTE prophylaxis: pharmacologic ordered (Lovenox 40 mg subQ daily.)
[2024-05-01 10:55] LABS: Alanine Aminotransferase 250 U/L (6-50); Albumin Level 4.1 g/dL (3.5-5.1); Alkaline Phosphatase 58 U/L (38-126); Anion Gap 5 mmol/L (4-12); Bilirubin,Total 0.9 mg/dL (0.2-1.3); Blood Urea Nitrogen 5 mg/dL (9-20); Calcium 9.4 mg/dL (8.4-10.2); Carbon Dioxide 31 mmol/L (22-30); Chloride 102 mmol/L (98-107); Estimated CRCL calculation 121 ml/min; Estimated Glomerular Filt Rate > 60; Glucose 89 mg/dL (65-110); Sodium 138 mmol/L (137-145)
[2024-05-01 11:07] LABS: Basophils Percent Auto 0.4 % (0.2-1.2); Eosinophils Absolute Auto 0.4 K/mm3 (0-0.3); Eosinophils Percent Auto 5.2 % (0-4.4); Hematocrit 40.9 % (42.0-52.0); Hemoglobin 13.7 g/dL (14.0-18.0); Immature Granulocyte Absolute 0.02 K/mm3 (0.00-0.031); Immature Granulocyte Percent A 0.3 % (0-0.5); Lymphocytes Absolute Auto 2.68 K/mm3 (0.9-3.2); Lymphocytes Percent Auto 37.9 % (18.3-44.2); Mean Corpuscular HGB Conc 33.5 g/dl (32-36); Mean Corpuscular Hemoglobin 29.4 pg (26-34); Mean Corpuscular Volume 87.8 fl (80-100); Mean Platelet Volume 10.1 fl (7.4-10.4); Monocytes Absolute Auto 0.6 K/mm3 (0.1-0.6); Monocytes Percent Auto 7.8 % (2.6-8.5); Neutrophils Absolute Auto 3.4 K/mm3 (1.3-6.7); Neutrophils Percent Auto 48.4 % (45.5-73.1); Platelet Count Result 226 k/mm3 (150-375); Red Blood Count 4.66 M/mm3 (4.6-6.20); Red Cell Distribution Width 12.5 % (11.5-14.5); White Blood Count 7.1 K/mm3 (4.5-10.0)
[2024-05-01 12:54] LABS: Creatine Kinase > 16000 U/L (55-170)
[2024-05-01 12:55] LABS: Aspartate Amino Transferase 1239 U/L (17-59)
[2024-05-01 16:14] LABS: Lipase 44 U/L (23-300)
[2024-05-01 16:50] LABS: Hepatitis B Surface Antigen Negative (Negative)
[2024-05-01 16:56] LABS: HAV RESULT Negative (Negative); Hepatitis B Core IgM Result Negative (Negative)
[2024-05-01 17:07] LABS: Hepatitis C Virus Antibody Negative (Negative)
[2024-05-02] VITALS (7 sets, daily range): BP systolic 117–159; BP diastolic 81–107; PULSE 60–92; RESP 18–22; TEMP 36.6–36.9; O2SAT 98–100
[2024-05-02] MEDS: LACTATED RINGERS 1,000 ML 300 ML IV CONT ×7 (02:42→23:52)
[2024-05-02 06:21] LABS: Basophils Percent Auto 0.5 % (0.2-1.2); Eosinophils Absolute Auto 0.4 K/mm3 (0-0.3); Eosinophils Percent Auto 6.5 % (0-4.4); Hematocrit 36.7 % (42.0-52.0); Hemoglobin 12.3 g/dL (14.0-18.0); Immature Granulocyte Absolute 0.01 K/mm3 (0.00-0.031); Immature Granulocyte Percent A 0.2 % (0-0.5); Lymphocytes Absolute Auto 2.76 K/mm3 (0.9-3.2); Lymphocytes Percent Auto 41.8 % (18.3-44.2); Mean Corpuscular HGB Conc 33.5 g/dl (32-36); Mean Corpuscular Hemoglobin 29.3 pg (26-34); Mean Corpuscular Volume 87.4 fl (80-100); Mean Platelet Volume 9.5 fl (7.4-10.4); Monocytes Absolute Auto 0.5 K/mm3 (0.1-0.6); Monocytes Percent Auto 7.7 % (2.6-8.5); Neutrophils Absolute Auto 2.9 K/mm3 (1.3-6.7); Neutrophils Percent Auto 43.3 % (45.5-73.1); Platelet Count Result 175 k/mm3 (150-375); Red Cell Distribution Width 12.4 % (11.5-14.5); White Blood Count 6.6 K/mm3 (4.5-10.0)
[2024-05-02 07:43] LABS: Alanine Aminotransferase 232 U/L (6-50); Albumin Level 3.4 g/dL (3.5-5.1); Alkaline Phosphatase 54 U/L (38-126); Anion Gap 5 mmol/L (4-12); Bilirubin,Total 0.3 mg/dL (0.2-1.3); Blood Urea Nitrogen 5 mg/dL (9-20); Calcium 8.8 mg/dL (8.4-10.2); Carbon Dioxide 29 mmol/L (22-30); Chloride 104 mmol/L (98-107); Estimated CRCL calculation 122 ml/min; Estimated Glomerular Filt Rate > 60; Glucose 97 mg/dL (65-110); Potassium 3.9 mmol/L (3.4-5.0); Sodium 138 mmol/L (137-145)
--- NOTE | 2024-05-02 07:44 | P.PNIM_ITS ---
Progress Note: A&P Assessment and Plan (1) Exertional rhabdomyolysis: Code(s): M62.82 - Rhabdomyolysis Status: Acute Assessment and Plan: * CK > 16,000 in ED * Given 3L LR bolus in ED * Will continue aggressive hydration and monitoring of CK/CMP * Low dose tylenol and toradol for prn pain * On 05/02 am, CK >16,000 (2) Transaminitis: Code(s): R74.01 - Elevation of levels of liver transaminase levels Status: Acute Assessment and Plan: * ED workup= AST:1057, ALT:183 * Likely secondary to exertional rhabdomyolysis * On 05/02: AST: 907, ALT: 232 * Hepatitis panel ordered, negative. * Lipase wnl * US Abd: Fat infiltration of the liver. Otherwise, normal right upper quadrant ultrasound. Time Spent With Patient Time: Subjective Date/time seen: 05/02/24 07:44 Interval history: Patient is a 28 year old male who presented to the emergency department with severe muscle pain and dark urine after starting a new intense exercise routine. He then went to an urgent care who directed the pt to go to the ED where he was found to have a CK greater than 16,000 with elevated transaminases. He received 3L of LR and reported improvement of symptoms. 05/02/2024 Patient is examined sitting comfortably at bedside. He denies any chest pain, shortness of breath, nausea/vomiting, or urinary complaints. He endorses improved overall muscle strength and states his muscle soreness has improved since yesterday. CK still >16,000, although AST is downtrending from 1239 yesterday to 907 today. ALT 250>232. Hepatitis panel negative. Lipase wnl. Abd US showed fatty liver but otherwise unremarkable. Review of Systems Review of Systems: 12 systems were reviewed with pertinent positives and negatives per HPI. Except as documented in the HPI, all other systems were reviewed and are negative. Exam Narrative: Weight 80.4 kg BMI 27.8 Const: Other: No acute distress, well-developed well-nourished HENMT: Other: Mucous membranes are moist, no oral pharyngeal erythema, head is normocephalic atraumatic Eyes: Other: Pupils are equal and reactive, no scleral icterus, no conjunctival pallor Neck: Other: Normal neck circumference, no thyromegaly Resp: Other: Clear to auscultation bilaterally, no increased work of breathing Cardio: Other: Regular rate, regular rhythm, 2+ bilateral radial and pedal pulses, no JVD, no murmur GI: Other: Soft, nontender, nondistended, normoactive bowel sounds Skin: Other: No jaundice, no pallor Neuro: Other: Alert oriented, speech is clear, no facial asymmetry, no localizing neurologic deficits noted during the course of conversation Extrem: Other: No clubbing, cyanosis or edema, moves all extremities equally Psych: Other: Appropriate mood and affect, pleasant and cooperative, judgment and insight intact Objective Data Vital Signs Vital Signs: Vital Signs - 24 hr 05/01/24 08:10 05/01/24 08:10 05/01/24 12:00 Temperature Pulse Rate 82 99 Respiratory Rate Blood Pressure Pulse Oximetry Oxygen Delivery Room Air 05/01/24 14:00 05/01/24 16:00 05/01/24 20:02 Temperature 98.1 F Pulse Rate 82 90 90 Respiratory Rate 16 Blood Pressure 128/68 Pulse Oximetry 99 Oxygen Delivery 05/01/24 20:25 05/01/24 20:36 05/02/24 00:02 Temperature 98.5 F Pulse Rate 90 107 H 74 Respiratory Rate 16 14 Blood Pressure 148/83 H Pulse Oximetry 99 92 Oxygen Delivery Room Air 05/02/24 04:02 05/02/24 05:00 Temperature 97.9 F Pulse Rate 79 82 Respiratory Rate 18 Blood Pressure 130/81 Pulse Oximetry 100 Oxygen Delivery Intake/Output Intake/Output: Intake & Output 04/29/24 04/30/24 05/01/24 05/02/24 23:59 23:59 23:59 23:59 Intake Total 3000 8687 9160 3000 Output Total 4975 5900 2100 Balance 3000 3712 6710 900 Meds/Results Medications: Active Medications Generic Name Dose Route Start Last Admin Trade Name Freq PRN Reason Stop Dose Admin Acetaminophen 500 mg 04/29/24 22:30 04/30/24 03:31 Acetaminophen 500 Mg Tablet PO 500 mg Q6H PRN Administration Mild Pain (1-3) or Fever Enoxaparin Sodium 40 mg 04/30/24 09:00 05/01/24 08:12 Enoxaparin 40 Mg/0.4 Ml Syringe SUB-Q Not Given DAILY MICHAEL Lactated Ringer's 1,000 mls @ 300 mls/hr 04/29/24 22:00 05/02/24 05:56 Lr - Lactated Ringers Iv IV CONT 300 mls/hr .Q3H20M MICHAEL Administration Ketorolac Tromethamine 15 mg 04/29/24 22:30 04/30/24 09:54 Ketorolac 15 Mg/Ml Vial (*Bkc) IV PUSH 15 mg Q6H PRN Administration Pain Rated 7-10 Ondansetron HCl 4 mg 04/29/24 22:36 Ondansetron Inj 4 Mg/2 Ml Vial IV PUSH Q6H PRN Nausea And Vomiting Radiology Results: ITS Impressions Abdomen Ultrasound 05/01/24 21:34 IMPRESSION: Fat infiltration of the liver. Otherwise, normal right upper quadrant ultrasound. Labs Labs: Laboratory Results - last 24 hr 05/01/24 05/01/24 05/02/24 09:57 10:02 06:02 WBC 7.1 RBC 4.66 Hgb 13.7 L Hct 40.9 L MCV 87.8 MCH 29.4 MCHC 33.5 RDW 12.5 Plt Count 226 MPV 10.1 Immature Gran % (Auto) 0.3 Neut % (Auto) 48.4 Lymph % (Auto) 37.9 [place] % (Auto) 7.8 Eos % (Auto) 5.2 H Baso % (Auto) 0.4 Lymph # (Auto) 2.68 [place] # (Auto) 0.6 Eos # (Auto) 0.4 H Baso # (Auto) 0.0 Abs Immat Gran (auto) 0.02 Absolute Neuts (auto) 3.4 Absolute Nucleated RBC 0.000 Nucleated RBC % 0.0 Sodium 138 138 Potassium 4.0 3.9 Chloride 102 104 Carbon Dioxide 31 H 29 Anion Gap 5 5 BUN 5 L D 5 L Creatinine 0.85 0.84 Estim Creat Clear Calc 121 122 Estimated GFR > 60 > 60 Glucose 89 97 Calcium 9.4 8.8 Total Bilirubin 0.9 0.3 AST 1239 H ALT 250 H 232 H Alkaline Phosphatase 58 54 Total Creatine Kinase > 48860 H Total Protein 7.0 6.0 L Albumin 4.1 3.4 L Lipase 44 Hepatitis A IgM Ab Negative Hep Bs Antigen Negative Hep B Core IgM Ab Negative Hepatitis C Ab Screen Negative 05/02/24 06:03 WBC 6.6 RBC 4.20 L Hgb 12.3 L Hct 36.7 L MCV 87.4 MCH 29.3 MCHC 33.5 RDW 12.4 Plt Count 175 MPV 9.5 Immature Gran % (Auto) 0.2 Neut % (Auto) 43.3 L Lymph % (Auto) 41.8 [place] % (Auto) 7.7 Eos % (Auto) 6.5 H Baso % (Auto) 0.5 Lymph # (Auto) 2.76 [place] # (Auto) 0.5 Eos # (Auto) 0.4 H Baso # (Auto) 0.0 Abs Immat Gran (auto) 0.01 Absolute Neuts (auto) 2.9 Absolute Nucleated RBC 0.000 Nucleated RBC % 0.0 Sodium Potassium Chloride Carbon Dioxide Anion Gap BUN Creatinine Estim Creat Clear Calc Estimated GFR Glucose Calcium Total Bilirubin AST ALT Alkaline Phosphatase Total Creatine Kinase Total Protein Albumin Lipase Hepatitis A IgM Ab Hep Bs Antigen Hep B Core IgM Ab Hepatitis C Ab Screen Quality VTE Prophylaxis VTE prophylaxis: pharmacologic ordered (Lovenox 40 mg subQ daily.)
[2024-05-02 07:46] LABS: Aspartate Amino Transferase 907 U/L (17-59)
[2024-05-02 07:51] LABS: Creatine Kinase > 16000 U/L (55-170)
[2024-05-02] MEDS: ENOXAPARIN 40 MG/0.4 ML SYRINGE SUB-Q (09:34)
[2024-05-02] MEDS: KETOROLAC 15 MG/ML VIAL (*BKC) IV PUSH (19:55)
[2024-05-02] MEDS: ONDANSETRON INJ 4 MG/2 ML VIAL IV PUSH (20:37)
[2024-05-03] VITALS (9 sets, daily range): BP systolic 116–146; BP diastolic 66–92; PULSE 60–92; RESP 16–20; TEMP 36.3–37; O2SAT 96–98
[2024-05-03 01:20] LABS: Creatine Kinase > 16000 U/L (55-170)
[2024-05-03] MEDS: LACTATED RINGERS 1,000 ML 300 ML IV CONT ×7 (03:18→23:31)
[2024-05-03 06:04] LABS: Basophils Percent Auto 0.3 % (0.2-1.2); Eosinophils Absolute Auto 0.4 K/mm3 (0-0.3); Eosinophils Percent Auto 5.1 % (0-4.4); Hematocrit 35.1 % (42.0-52.0); Hemoglobin 11.9 g/dL (14.0-18.0); Immature Granulocyte Absolute 0.02 K/mm3 (0.00-0.031); Immature Granulocyte Percent A 0.3 % (0-0.5); Lymphocytes Absolute Auto 3.09 K/mm3 (0.9-3.2); Lymphocytes Percent Auto 39.1 % (18.3-44.2); Mean Corpuscular HGB Conc 33.9 g/dl (32-36); Mean Corpuscular Hemoglobin 29.6 pg (26-34); Mean Corpuscular Volume 87.3 fl (80-100); Mean Platelet Volume 9.7 fl (7.4-10.4); Monocytes Absolute Auto 0.6 K/mm3 (0.1-0.6); Monocytes Percent Auto 7.2 % (2.6-8.5); Neutrophils Absolute Auto 3.8 K/mm3 (1.3-6.7); Platelet Count Result 173 k/mm3 (150-375); Red Blood Count 4.02 M/mm3 (4.6-6.20); Red Cell Distribution Width 12.3 % (11.5-14.5); White Blood Count 7.9 K/mm3 (4.5-10.0)
[2024-05-03 06:25] LABS: Alanine Aminotransferase 230 U/L (6-50); Albumin Level 3.4 g/dL (3.5-5.1); Alkaline Phosphatase 52 U/L (38-126); Anion Gap 5 mmol/L (4-12); Aspartate Amino Transferase 686 U/L (17-59); Bilirubin,Total 0.5 mg/dL (0.2-1.3); Blood Urea Nitrogen 5 mg/dL (9-20); Calcium 8.9 mg/dL (8.4-10.2); Carbon Dioxide 33 mmol/L (22-30); Chloride 100 mmol/L (98-107); Estimated CRCL calculation 122 ml/min; Estimated Glomerular Filt Rate > 60; Glucose 89 mg/dL (65-110); Sodium 138 mmol/L (137-145)
[2024-05-03] MEDS: KETOROLAC 15 MG/ML VIAL (*BKC) IV PUSH (06:46)
--- NOTE | 2024-05-03 07:38 | P.PNIM_ITS ---
Progress Note: A&P Assessment and Plan (1) Exertional rhabdomyolysis: Code(s): M62.82 - Rhabdomyolysis Status: Acute Assessment and Plan: * CK > 16,000 in ED * Given 3L LR bolus in ED * Will continue aggressive hydration and monitoring of CK/CMP * Low dose tylenol and toradol for prn pain * On 05/03 am, CK >16,000 (2) Transaminitis: Code(s): R74.01 - Elevation of levels of liver transaminase levels Status: Acute Assessment and Plan: * ED workup= AST:1057, ALT:183 * Likely secondary to exertional rhabdomyolysis * On 05/03: AST: 686, ALT: 230 * Hepatitis panel ordered, negative. * Lipase wnl * US Abd: Fat infiltration of the liver. Otherwise, normal right upper quadrant ultrasound. Time Spent With Patient Time: Subjective Date/time seen: 05/03/24 07:38 Interval history: Patient is a 28 year old male who presented to the emergency department with severe muscle pain and dark urine after starting a new intense exercise routine. He then went to an urgent care who directed the pt to go to the ED where he was found to have a CK greater than 16,000 with elevated transaminases. He received 3L of LR and reported improvement of symptoms. 05/03/2024 Patient is sitting comfortably at bedside. He continues to endorse improvement of his overall muscle pain. Continues to receive IV fluid hydration. Will continue to monitor CK. LFTs down trending. Review of Systems Review of Systems: 12 systems were reviewed with pertinent positives and negatives per HPI. Except as documented in the HPI, all other systems were reviewed and are negative. Exam Narrative: Weight 80.4 kg BMI 27.8 Const: Other: No acute distress, well-developed well-nourished HENMT: Other: Mucous membranes are moist, no oral pharyngeal erythema, head is normocephalic atraumatic Eyes: Other: Pupils are equal and reactive, no scleral icterus, no conjunctival pallor Neck: Other: Normal neck circumference, no thyromegaly Resp: Other: Clear to auscultation bilaterally, no increased work of breathing Cardio: Other: Regular rate, regular rhythm, 2+ bilateral radial and pedal pulses, no JVD, no murmur GI: Other: Soft, nontender, nondistended, normoactive bowel sounds Skin: Other: No jaundice, no pallor Neuro: Other: Alert oriented, speech is clear, no facial asymmetry, no localizing neurologic deficits noted during the course of conversation Extrem: Other: No clubbing, cyanosis or edema, moves all extremities equally Psych: Other: Appropriate mood and affect, pleasant and cooperative, judgment and insight intact Objective Data Vital Signs Vital Signs: Vital Signs - 24 hr 05/02/24 08:00 05/02/24 12:00 05/02/24 14:00 Temperature 98.4 F Pulse Rate 92 78 Respiratory Rate 18 Blood Pressure 117/88 Pulse Oximetry 98 Oxygen Delivery Room Air 05/02/24 20:00 05/02/24 20:00 05/02/24 20:37 Temperature 98.2 F Pulse Rate 83 60 Respiratory Rate 22 H Blood Pressure 159/107 H Pulse Oximetry 100 Oxygen Delivery Room Air 05/03/24 00:00 05/03/24 04:00 05/03/24 05:16 Temperature 98.2 F Pulse Rate 66 60 79 Respiratory Rate 20 Blood Pressure 116/66 Pulse Oximetry 98 Oxygen Delivery Intake/Output Intake/Output: Intake & Output 04/30/24 05/01/24 05/02/24 05/03/24 23:59 23:59 23:59 23:59 Intake Total 8687 9160 8442 2535 Output Total 4975 5900 4100 1100 Balance 3712 3260 4342 1435 Meds/Results Medications: Active Medications Generic Name Dose Route Start Last Admin Trade Name Freq PRN Reason Stop Dose Admin Acetaminophen 500 mg 04/29/24 22:30 04/30/24 03:31 Acetaminophen 500 Mg Tablet PO 500 mg Q6H PRN Administration Mild Pain (1-3) or Fever Enoxaparin Sodium 40 mg 04/30/24 09:00 05/02/24 09:34 Enoxaparin 40 Mg/0.4 Ml Syringe SUB-Q 40 mg DAILY MICHAEL Administration Lactated Ringer's 1,000 mls @ 300 mls/hr 04/29/24 22:00 05/03/24 06:35 Lr - Lactated Ringers Iv IV CONT 300 mls/hr .Q3H20M MICHAEL Administration Ketorolac Tromethamine 15 mg 04/29/24 22:30 05/03/24 06:46 Ketorolac 15 Mg/Ml Vial (*Bkc) IV PUSH 15 mg Q6H PRN Administration Pain Rated 7-10 Ondansetron HCl 4 mg 04/29/24 22:36 05/02/24 20:37 Ondansetron Inj 4 Mg/2 Ml Vial IV PUSH 4 mg Q6H PRN Administration Nausea And Vomiting Radiology Results: ITS Impressions Abdomen Ultrasound 05/01/24 21:34 IMPRESSION: Fat infiltration of the liver. Otherwise, normal right upper quadrant ultrasound. Labs Labs: Laboratory Results - last 24 hr 05/02/24 05/02/24 05/03/24 06:02 06:03 00:25 WBC RBC Hgb Hct MCV MCH MCHC RDW Plt Count MPV Immature Gran % (Auto) Neut % (Auto) Lymph % (Auto) [place] % (Auto) Eos % (Auto) Baso % (Auto) Lymph # (Auto) [place] # (Auto) Eos # (Auto) Baso # (Auto) Abs Immat Gran (auto) Absolute Neuts (auto) Absolute Nucleated RBC Nucleated RBC % Sodium 138 Potassium 3.9 Chloride 104 Carbon Dioxide 29 Anion Gap 5 BUN 5 L Creatinine 0.84 Estim Creat Clear Calc 122 Estimated GFR > 60 Glucose 97 Calcium 8.8 Total Bilirubin 0.3 AST 907 H ALT 232 H Alkaline Phosphatase 54 Total Creatine Kinase > 48734 H > 70566 H Total Protein 6.0 L Albumin 3.4 L 05/03/24 05:42 WBC 7.9 RBC 4.02 L Hgb 11.9 L Hct 35.1 L MCV 87.3 MCH 29.6 MCHC 33.9 RDW 12.3 Plt Count 173 MPV 9.7 Immature Gran % (Auto) 0.3 Neut % (Auto) 48.0 Lymph % (Auto) 39.1 [place] % (Auto) 7.2 Eos % (Auto) 5.1 H Baso % (Auto) 0.3 Lymph # (Auto) 3.09 [place] # (Auto) 0.6 Eos # (Auto) 0.4 H Baso # (Auto) 0.0 Abs Immat Gran (auto) 0.02 Absolute Neuts (auto) 3.8 Absolute Nucleated RBC 0.000 Nucleated RBC % 0.0 Sodium 138 Potassium 4.0 Chloride 100 Carbon Dioxide 33 H Anion Gap 5 BUN 5 L Creatinine 0.84 Estim Creat Clear Calc 122 Estimated GFR > 60 Glucose 89 Calcium 8.9 Total Bilirubin 0.5 AST 686 H ALT 230 H Alkaline Phosphatase 52 Total Creatine Kinase Total Protein 6.0 L Albumin 3.4 L Quality VTE Prophylaxis VTE prophylaxis: pharmacologic ordered (Lovenox 40 mg subQ daily.)
[2024-05-03 09:23] LABS: Creatine Kinase > 16000 U/L (55-170)
[2024-05-04] VITALS (9 sets, daily range): BP systolic 134–150; BP diastolic 72–82; PULSE 62–94; RESP 14–18; TEMP 36.3–37; O2SAT 96–100
[2024-05-04] MEDS: LACTATED RINGERS 1,000 ML 300 ML IV CONT ×7 (02:51→23:00)
[2024-05-04 05:39] LABS: Basophils Percent Auto 0.4 % (0.2-1.2); Eosinophils Absolute Auto 0.4 K/mm3 (0-0.3); Eosinophils Percent Auto 5.9 % (0-4.4); Hematocrit 40.8 % (42.0-52.0); Hemoglobin 13.5 g/dL (14.0-18.0); Immature Granulocyte Absolute 0.02 K/mm3 (0.00-0.031); Immature Granulocyte Percent A 0.3 % (0-0.5); Lymphocytes Absolute Auto 3.05 K/mm3 (0.9-3.2); Lymphocytes Percent Auto 41.1 % (18.3-44.2); Mean Corpuscular HGB Conc 33.1 g/dl (32-36); Mean Corpuscular Hemoglobin 29.1 pg (26-34); Mean Corpuscular Volume 87.9 fl (80-100); Mean Platelet Volume 9.3 fl (7.4-10.4); Monocytes Absolute Auto 0.6 K/mm3 (0.1-0.6); Monocytes Percent Auto 7.4 % (2.6-8.5); Neutrophils Absolute Auto 3.3 K/mm3 (1.3-6.7); Neutrophils Percent Auto 44.9 % (45.5-73.1); Platelet Count Result 194 k/mm3 (150-375); Red Blood Count 4.64 M/mm3 (4.6-6.20); Red Cell Distribution Width 12.4 % (11.5-14.5); White Blood Count 7.4 K/mm3 (4.5-10.0)
[2024-05-04 05:55] LABS: Alanine Aminotransferase 235 U/L (6-50); Alkaline Phosphatase 58 U/L (38-126); Anion Gap 5 mmol/L (4-12); Aspartate Amino Transferase 505 U/L (17-59); Bilirubin,Total 0.4 mg/dL (0.2-1.3); Blood Urea Nitrogen 6 mg/dL (9-20); Calcium 9.2 mg/dL (8.4-10.2); Carbon Dioxide 33 mmol/L (22-30); Chloride 101 mmol/L (98-107); Estimated CRCL calculation 113 ml/min; Estimated Glomerular Filt Rate > 60; Glucose 93 mg/dL (65-110); Potassium 4.1 mmol/L (3.4-5.0); Sodium 139 mmol/L (137-145)
--- NOTE | 2024-05-04 06:55 | P.PNIM_ITS ---
Progress Note: A&P Assessment and Plan (1) Exertional rhabdomyolysis: Code(s): M62.82 - Rhabdomyolysis Status: Acute Assessment and Plan: * CK > 16,000 in ED * Given 3L LR bolus in ED * Will continue aggressive hydration and monitoring of CK/CMP * Low dose tylenol and toradol for prn pain * On 05/04 am, CK >15,082 (2) Transaminitis: Code(s): R74.01 - Elevation of levels of liver transaminase levels Status: Acute Assessment and Plan: * ED workup= AST:1057, ALT:183 * Likely secondary to exertional rhabdomyolysis * On 05/04: AST: 505, ALT: 235 * Hepatitis panel ordered, negative. * Lipase wnl * US Abd: Fat infiltration of the liver. Otherwise, normal right upper quadrant ultrasound. Time Spent With Patient Time: Subjective Date/time seen: 05/04/24 06:55 Interval history: Patient is a 28 year old male who presented to the emergency department with severe muscle pain and dark urine after starting a new intense exercise routine. He then went to an urgent care who directed the pt to go to the ED where he was found to have a CK greater than 16,000 with elevated transaminases. He received 3L of LR and reported improvement of symptoms. 05/04/2024 Patient is sitting comfortably at bedside. He continues to endorse improvement of his overall muscle pain. Continues to receive IV fluid hydration. CK 15,082 today, will continue to monitor. LFTs down trending. Review of Systems Review of Systems: 12 systems were reviewed with pertinent positives and negatives per HPI. Except as documented in the HPI, all other systems were reviewed and are negative. Exam Narrative: Weight 80.4 kg BMI 27.8 Const: Other: No acute distress, well-developed well-nourished HENMT: Other: Mucous membranes are moist, no oral pharyngeal erythema, head is normocephalic atraumatic Eyes: Other: Pupils are equal and reactive, no scleral icterus, no conjunctival pallor Neck: Other: Normal neck circumference, no thyromegaly Resp: Other: Clear to auscultation bilaterally, no increased work of breathing Cardio: Other: Regular rate, regular rhythm, 2+ bilateral radial and pedal pulses, no JVD, no murmur GI: Other: Soft, nontender, nondistended, normoactive bowel sounds Skin: Other: No jaundice, no pallor Neuro: Other: Alert oriented, speech is clear, no facial asymmetry, no localizing neurologic deficits noted during the course of conversation Extrem: Other: No clubbing, cyanosis or edema, moves all extremities equally Psych: Other: Appropriate mood and affect, pleasant and cooperative, judgment and insight intact Objective Data Vital Signs Vital Signs: Vital Signs - 24 hr 05/03/24 08:00 05/03/24 08:00 05/03/24 12:00 Temperature Pulse Rate 92 78 Respiratory Rate Blood Pressure Pulse Oximetry Oxygen Delivery Room Air 05/03/24 14:00 05/03/24 16:02 05/03/24 20:00 Temperature 98.6 F Pulse Rate 66 78 67 Respiratory Rate 18 Blood Pressure 133/72 Pulse Oximetry 98 Oxygen Delivery 05/03/24 20:46 05/04/24 00:00 05/04/24 05:35 Temperature 97.3 F L 97.3 F L Pulse Rate 86 62 74 Respiratory Rate 16 18 Blood Pressure 146/92 H 134/74 Pulse Oximetry 96 96 Oxygen Delivery Intake/Output Intake/Output: Intake & Output 05/01/24 05/02/24 05/03/24 05/04/24 23:59 23:59 23:59 23:59 Intake Total 9160 8442 8432 5725 Output Total 5900 5100 4250 4250 Balance 3260 3342 4182 1475 Meds/Results Medications: Active Medications Generic Name Dose Route Start Last Admin Trade Name Freq PRN Reason Stop Dose Admin Acetaminophen 500 mg 04/29/24 22:30 04/30/24 03:31 Acetaminophen 500 Mg Tablet PO 500 mg Q6H PRN Administration Mild Pain (1-3) or Fever Enoxaparin Sodium 40 mg 04/30/24 09:00 05/03/24 08:44 Enoxaparin 40 Mg/0.4 Ml Syringe SUB-Q Not Given DAILY MICHAEL Lactated Ringer's 1,000 mls @ 300 mls/hr 04/29/24 22:00 05/04/24 05:56 Lr - Lactated Ringers Iv IV CONT 300 mls/hr .Q3H20M MICHAEL Administration Ketorolac Tromethamine 15 mg 04/29/24 22:30 05/03/24 06:46 Ketorolac 15 Mg/Ml Vial (*Bkc) IV PUSH 15 mg Q6H PRN Administration Pain Rated 7-10 Miscellaneous Information 0 each 05/03/24 00:01 Ketorolac Order Will Auto Stop 05/04. Please Renew Order If This Is To Be Continued. XX 06/02/24 00:00 CLARIFY MICHAEL Ondansetron HCl 4 mg 04/29/24 22:36 05/02/24 20:37 Ondansetron Inj 4 Mg/2 Ml Vial IV PUSH 4 mg Q6H PRN Administration Nausea And Vomiting Radiology Results: ITS Impressions Abdomen Ultrasound 05/01/24 21:34 IMPRESSION: Fat infiltration of the liver. Otherwise, normal right upper quadrant ultrasound. Labs Labs: Laboratory Results - last 24 hr 05/03/24 05/04/24 05:42 05:29 WBC 7.4 RBC 4.64 Hgb 13.5 L Hct 40.8 L MCV 87.9 MCH 29.1 MCHC 33.1 RDW 12.4 Plt Count 194 MPV 9.3 Immature Gran % (Auto) 0.3 Neut % (Auto) 44.9 L Lymph % (Auto) 41.1 [place] % (Auto) 7.4 Eos % (Auto) 5.9 H Baso % (Auto) 0.4 Lymph # (Auto) 3.05 [place] # (Auto) 0.6 Eos # (Auto) 0.4 H Baso # (Auto) 0.0 Abs Immat Gran (auto) 0.02 Absolute Neuts (auto) 3.3 Absolute Nucleated RBC 0.000 Nucleated RBC % 0.0 Sodium 139 Potassium 4.1 Chloride 101 Carbon Dioxide 33 H Anion Gap 5 BUN 6 L Creatinine 0.91 Estim Creat Clear Calc 113 Estimated GFR > 60 Glucose 93 Calcium 9.2 Total Bilirubin 0.4 AST 505 H ALT 235 H Alkaline Phosphatase 58 Total Creatine Kinase > 84400 H Total Protein 7.0 Albumin 4.0 Quality VTE Prophylaxis VTE prophylaxis: pharmacologic ordered (Lovenox 40 mg subQ daily.)
[2024-05-04 07:21] LABS: Creatine Kinase 15082 U/L (55-170)
[2024-05-04] MEDS: ENOXAPARIN 40 MG/0.4 ML SYRINGE SUB-Q (08:41)
[2024-05-04] MEDS: KETOROLAC 15 MG/ML VIAL (*BKC) IV PUSH (08:41)
[2024-05-05] VITALS: PULSE 61
[2024-05-05] MEDS: LACTATED RINGERS 1,000 ML 300 ML IV CONT ×3 (02:30→09:16)
[2024-05-05 04:00] VITALS: PULSE 61
[2024-05-05 05:13] VITALS: BP 133/85; PULSE 65; RESP 16; TEMP 36.3; O2SAT 100
[2024-05-05 06:46] LABS: Basophils Percent Auto 0.4 % (0.2-1.2); Eosinophils Absolute Auto 0.4 K/mm3 (0-0.3); Eosinophils Percent Auto 5.3 % (0-4.4); Hematocrit 40.9 % (42.0-52.0); Hemoglobin 13.8 g/dL (14.0-18.0); Immature Granulocyte Absolute 0.02 K/mm3 (0.00-0.031); Immature Granulocyte Percent A 0.2 % (0-0.5); Lymphocytes Absolute Auto 3.49 K/mm3 (0.9-3.2); Mean Corpuscular HGB Conc 33.7 g/dl (32-36); Mean Corpuscular Hemoglobin 28.8 pg (26-34); Mean Corpuscular Volume 85.2 fl (80-100); Mean Platelet Volume 9.3 fl (7.4-10.4); Monocytes Absolute Auto 0.7 K/mm3 (0.1-0.6); Monocytes Percent Auto 8.1 % (2.6-8.5); Neutrophils Absolute Auto 3.5 K/mm3 (1.3-6.7); Platelet Count Result 207 k/mm3 (150-375); Red Cell Distribution Width 12.2 % (11.5-14.5); White Blood Count 8.1 K/mm3 (4.5-10.0)
[2024-05-05 07:10] LABS: Alanine Aminotransferase 211 U/L (6-50); Albumin Level 4.1 g/dL (3.5-5.1); Alkaline Phosphatase 56 U/L (38-126); Anion Gap 6 mmol/L (4-12); Aspartate Amino Transferase 311 U/L (17-59); Bilirubin,Total 0.5 mg/dL (0.2-1.3); Blood Urea Nitrogen 7 mg/dL (9-20); Calcium 9.3 mg/dL (8.4-10.2); Carbon Dioxide 30 mmol/L (22-30); Chloride 102 mmol/L (98-107); Estimated CRCL calculation 119 ml/min; Estimated Glomerular Filt Rate > 60; Glucose 88 mg/dL (65-110); Potassium 4.1 mmol/L (3.4-5.0); Sodium 138 mmol/L (137-145)
[2024-05-05 08:04] LABS: Creatine Kinase 7844 U/L (55-170)
--- NOTE | 2024-05-05 09:42 | P.DS_ITS ---
DS: Admitting Diagnosis Discharge Date 05/05/2024 Admitting Diagnosis Rhabdomyolysis DS: Discharge Diagnosis Discharge Diagnosis (1) Exertional rhabdomyolysis: Code(s): M62.82 - Rhabdomyolysis Status: Acute (2) Transaminitis: Code(s): R74.01 - Elevation of levels of liver transaminase levels Status: Acute DS: Summary Hospital Course Reason for hospitalization: Elevated CK Elevated LFTs Hospital Course: 28-year-old male with no significant past medical history presented to the ER from urgent care due to muscle pain and dark urine. The patient reports that he and his girlfriend were starting a new fitness routine and 3 days ago he could not wait to start the new routine so he went to the gym and lifted weights on his own. Then that evening when his girlfriend wanted to go to the gym he then proceeded to do the same workout that evening. He reports that the workout was much more intense than his usual work and concentrated on his arms and chest and upper back. He reports that he usually only works out 1 or 2 times a week after her those were cats he has become progressively more sore in his chest upper arms and upper back. He reports he did not have much urine output yesterday and was urine he did pass today was extremely dark in color. 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 He reported that he was having trouble lifting his arms above his shoulders. Subsequently he ended up going to urgent care. Urgent care directed the patient to come to the ER. In the ER patient's urine was noted to be the color of [employer] in the patient's CK was greater than 16,000 with elevated transaminases. He received 3 L of LR and reported improvement in symptoms. He reports that he has not had much appetite due to his symptoms. He denies any fevers or chills. He denies any dysuria or hematuria. Throughout his visit, he continued to have elevated CK levels above 16,000. On 05/04, [place] CK was [address]. At this time, his CK is 7844. He elevated LFTs (AST 1239, ALT 250) have also decreased substantially down to 311 and 211 respectively. His symptoms improved greatly too, reporting minimal muscle soreness on the morning of 05/05/24. Given his downtrending CK and LFTs, as well as his symptom improvement and ability to intake fluids at home, patient is stable for discharge. He was given an ambulatory to obtain a CK and CMP at a facility of his convenience to be filled out 1 day after discharge. He also expressed desire to be referred to a new primary care physician. Care coordination will supply a list of PCPs he may choose from to schedule a followup appointment as soon as possible. Time Spent with Patient Time attestation: Total time spent providing and/or coordinating discharge services:30 Exam Narrative: Weight 80.4 kg BMI 27.8 Const: Other: No acute distress, well-developed well-nourished HENMT: Other: Mucous membranes are moist, no oral pharyngeal erythema, head is normocephalic atraumatic Eyes: Other: Pupils are equal and reactive, no scleral icterus, no conjunctival pallor Neck: Other: Normal neck circumference, no thyromegaly Resp: Other: Clear to auscultation bilaterally, no increased work of breathing Cardio: Other: Regular rate, regular rhythm, 2+ bilateral radial and pedal pulses, no JVD, no murmur GI: Other: Soft, nontender, nondistended, normoactive bowel sounds Skin: Other: No jaundice, no pallor Neuro: Other: Alert oriented, speech is clear, no facial asymmetry, no localizing neurologic deficits noted during the course of conversation Extrem: Other: No clubbing, cyanosis or edema, moves all extremities equally Psych: Other: Appropriate mood and affect, pleasant and cooperative, judgment and insight intact DS: Data Data Completed and Pending Labs on day of discharge: Labs from last 24 hours 05/05/24 06:24 WBC 8.1 RBC 4.80 Hgb 13.8 L Hct 40.9 L MCV 85.2 MCH 28.8 MCHC 33.7 RDW 12.2 Plt Count 207 MPV 9.3 Immature Gran % (Auto) 0.2 Neut % (Auto) 43.0 L Lymph % (Auto) 43.0 [place] % (Auto) 8.1 Eos % (Auto) 5.3 H Baso % (Auto) 0.4 Lymph # (Auto) 3.49 H [place] # (Auto) 0.7 H Eos # (Auto) 0.4 H Baso # (Auto) 0.0 Abs Immat Gran (auto) 0.02 Absolute Neuts (auto) 3.5 Absolute Nucleated RBC 0.000 Nucleated RBC % 0.0 Sodium 138 Potassium 4.1 Chloride 102 Carbon Dioxide 30 Anion Gap 6 BUN 7 L Creatinine 0.86 Estim Creat Clear Calc 119 Estimated GFR > 60 Glucose 88 Calcium 9.3 Total Bilirubin 0.5 AST 311 H ALT 211 H Alkaline Phosphatase 56 Total Creatine Kinase 7844 H Total Protein 7.0 Albumin 4.1 Discharge Plan Discharge Attending physician on discharge: Alex Christensen Consulting providers: Bishop Gurrola Discharging Clinician: Alex Christensen Anticipated Discharge Date/Time: 05/05/24 09:36 Patient Disposition: Home, Self-Care Activity: no straining and as tolerated Diet: as tolerated Discharge Instructions: Discharge disposition:Stable You will be given an out patient order to measure your Creatine Kinase. Get this order filled out tomorrow or as soon as possible. You will be given a list of Primary Care Physicians you may followup with. Choose one and schedule an appointment as soon as possible to discuss your visit in the hospital and to followup on your lab results. Monitor blood pressures Take caution while standing, rising, or moving Change positions slowly taking a break between each position change If you standing feel dizzy sit back down and take a break Encouraged to continue with yearly vaccinations Return to the emergency department if he developed sudden shortness of breath, chest pain, nausea, vomiting, upset stomach or intractable diarrhea Return to the emergency department if you develop fever greater than 101.5 Thank you for [facility] for your healthcare needs Patient Instructions: Antibiotic Form Patient Language: Kinyarwanda Stand Alone Forms: General Discharge Information Follow-up/Referrals: PHYSICIAN,[employer] L[employer] TECHNICIAN [Primary Care Provider] - Discharge Medications: No Action No Home Medications Other Ambulatory Orders: Creatine Kinase (Routine) Timeframe: 1 Day Location: Determined by Patient Ordered By: Alex Christensen Comprehensive Metabolic Panel (Routine) Timeframe: 1 Day Location: Determined by Patient Ordered By: Alex Christensen Date of admission: 04/29/24 22:24 Primary Care Provider: PHYSICIAN,[employer] L[employer] TECHNICIAN Admitting Provider: Adelaide Vazquez Attending physician on admission: Alex Christensen Condition: Stable Quality VTE Prophylaxis VTE prophylaxis: pharmacologic ordered (Lovenox 40 mg subQ daily.) Hospitalist MIPS Heart Failure (Exclusion) Patient has history of Heart Transplant or Left Ventricular Assistive Device?: No IF YES, STOP HERE Heart Failure (Qualifier) Patient has current or prior documentation of LVEF less than or equal to 40%, or mod/servere depressed LVSF?: No IF NO, STOP HERE
[2024-05-05 09:56] VITALS: O2SAT 95
== END 2024-05-05 11:55 | disposition home or self-care (01) | DRG 351 ==
LOC: ANHED 22:22 → ANH3MEDSUR 23:10
PROVIDERS: Admitting Provider Internal Medicine; Emergency Provider Student in an Organized Health Care Education/Training Program; Visit Provider Physician Assistant
DX: M62.82 Rhabdomyolysis (principal); R74.01 Elevation of levels of liver transaminase levels; F41.9 Anxiety disorder, unspecified
CPT/HCPCS: 36415; 76705; 80053; 80074; 80307; 81001; 82550; 83690; 85025; 93005; 96360; 99285; A9270; J1650; J1885; J2405; J7120